=== PATIENT | male | born 1960 | race Caucasian/White ===

== ENCOUNTER 2017-10-01 06:54 | Emergency (ER) | payer MEDICAID ==
[~2017-10-01] VITALS: Ht 182.9 cm; Wt 94.3 kg
[~2017-10-01 06:54] MED LIST: ABILIFY30 MG PO; APAP/CODEINE ELI5 M1 OR; CARBAMAZEPINE100 M3 PO; CYCLOBENZAPRINE10 MG PO; CYCLOBENZAPRINE5 MG PO; DILANTIN100 MG PO; FLEXERIL PO; GLUCOPHAGE XR500 MG PO; HYDROCODON-ACE1 EAC7 PO; HYDROCODONE-AP1 EAC6 PO; HYDROCODONE-APA1 TA1 PO; IBUPROFEN 600600 M1 PO; KEFLEX500 MG PO; LANTUS100 UNIT/M SUBQ; LITHIUM CARBON300 M3 PO; NEURONTIN 300300 M1 PO; NOHOMEMEDICATIONS; NORCO 5-325 TA1 EAC1 PO; NORCO 5-325 TA1 EACH PO; OXECTA5 MG PO; ZPAK PO
[2017-10-01] MEDS ORDERED: NORCO 5-325 TA1 EACH PO (08:05)
[2017-10-01 08:15] VITALS: BP 128/80
[2017-11-28] MEDS ORDERED: PEPCID20 MG PO (14:06)
[2017-11-28] MEDS ORDERED: ZOFRAN ODT4 M1 PO (14:10)
[2017-12-24] MEDS ORDERED: ZOLOFT25 MG PO (10:20)
[2017-12-24] MEDS ORDERED: NORCO 5-325 TA1 EACH PO (12:13)
[2018-03-14] MEDS ORDERED: BACTRIM DS TAB1 EACH PO (13:03)
[2018-03-14] MEDS ORDERED: HYDROCODONE-AP1 EAC6 PO (13:03)
== END 2017-10-01 08:16 | disposition home or self-care (01) ==
LOC: M.ERS 06:54
DX: M25.552 Pain in left hip (principal); G89.29 Other chronic pain; F31.9 Bipolar disorder, unspecified; E11.9 Type 2 diabetes mellitus without complications; F41.9 Anxiety disorder, unspecified; F17.210 Nicotine dependence, cigarettes, uncomplicated; Z98.890 Other specified postprocedural states; Z79.4 Long term (current) use of insulin; Z88.0 Allergy status to penicillin; Z88.5 Allergy status to narcotic agent; Z88.6 Allergy status to analgesic agent

== ENCOUNTER 2017-10-29 12:40 | Emergency (ER) | payer MEDICAID ==
[~2017-10-29] VITALS: Ht 182.9 cm; Wt 94.3 kg
[2017-10-29] MEDS ORDERED: NAPROSYN500 M1 PO (14:23)
[2017-10-29] MEDS ORDERED: NEURONTIN 300300 M1 PO (14:23)
[2017-10-29] MEDS ORDERED: NORCO 5-325 TA1 EAC1 PO (14:23)
[2017-10-29 15:04] VITALS: BP 122/82
[2017-11-28] MEDS ORDERED: PEPCID20 MG PO (14:06)
[2017-11-28] MEDS ORDERED: ZOFRAN ODT4 M1 PO (14:10)
[2017-12-24] MEDS ORDERED: ZOLOFT25 MG PO (10:20)
[2017-12-24] MEDS ORDERED: NORCO 5-325 TA1 EACH PO (12:13)
[2018-03-14] MEDS ORDERED: BACTRIM DS TAB1 EACH PO (13:03)
[2018-03-14] MEDS ORDERED: HYDROCODONE-AP1 EAC6 PO (13:03)
== END 2017-10-29 15:06 | disposition home or self-care (01) ==
LOC: M.ERS 12:40
DX: M54.12 Radiculopathy, cervical region (principal); F31.9 Bipolar disorder, unspecified; E11.9 Type 2 diabetes mellitus without complications; G89.29 Other chronic pain; F41.9 Anxiety disorder, unspecified; F17.210 Nicotine dependence, cigarettes, uncomplicated; Z88.0 Allergy status to penicillin; Z88.6 Allergy status to analgesic agent; Z79.4 Long term (current) use of insulin

== ENCOUNTER 2017-11-05 01:33 | Emergency (ER) | payer MEDICAID ==
[~2017-11-05] VITALS: Ht 182.9 cm; Wt 94.3 kg
[~2017-11-05 01:33] MED LIST changes: +NAPROSYN500 M1 PO
[2017-11-05] MEDS ORDERED: LEVEMIR SUBQ (01:38)
[2017-11-05] MEDS ORDERED: METFORMIN HCL500 MG PO (01:38)
[2017-11-05 02:01] LABS: ABSOLUTE BASOPHILS 0.2 thou/uL (0.0-0.2); ABSOLUTE EOSINOPHILS 0.4 thou/uL (0.0-0.7); ABSOLUTE LYMPHOCYTES 3.2 thou/uL (0.8-5.3); ABSOLUTE MONOCYTES 1.2 thou/uL (0.0-1.2); ABSOLUTE NEUTROPHILS 6.5 thou/uL (1.6-8.1); BASOPHILS 1.4 %; EOSINOPHILS 3.3 %; HEMATOCRIT 48.6 % (42.0-52.0); HEMOGLOBIN 16.5 gm/dL (14.0-18.0); LYMPHOCYTES 28.4 %; MCH 32.7 pg (26.0-34.0); MCHC 33.9 g/dL (28.0-37.0); MCV 96.5 fL (80.0-100.0); MONOCYTES 10.4 %; MPV 7.4 fl. (7.2-11.1); NUCLEATED RBCS 0 /100WBC; PLATELET COUNT* 301 thou/uL (150-400); POLYS 56.5 %; RBC 5.04 mil/uL (4.50-6.00); RDW-CV 13.7 % (10.5-14.5); WBC 11.4 thou/uL (4.0-11.0)
[2017-11-05 02:06] LABS: CALCIUM 9.2 mg/dL (8.5-10.1); CREATININE 1.3 mg/dL (0.6-1.3); POTASSIUM 4.3 mmol/L (3.5-5.1)
[2017-11-05 02:11] LABS: ALBUMIN 4.1 g/dL (3.4-5.0); TOTAL BILIRUBIN 0.9 mg/dL (<0.1-1.0); TOTAL PROTEIN 8.1 g/dL (6.4-8.2)
[2017-11-05 03:38] VITALS: BP 127/75
[2017-11-28] MEDS ORDERED: PEPCID20 MG PO (14:06)
[2017-11-28] MEDS ORDERED: ZOFRAN ODT4 M1 PO (14:10)
[2017-12-24] MEDS ORDERED: ZOLOFT25 MG PO (10:20)
[2017-12-24] MEDS ORDERED: NORCO 5-325 TA1 EACH PO (12:13)
[2018-03-14] MEDS ORDERED: BACTRIM DS TAB1 EACH PO (13:03)
[2018-03-14] MEDS ORDERED: HYDROCODONE-AP1 EAC6 PO (13:03)
== END 2017-11-05 03:38 | disposition home or self-care (01) ==
LOC: M.ERS 01:33
PROVIDERS: Personal Emergency Response Attendant
DX: M25.511 Pain in right shoulder (principal); M79.1 Myalgia; F17.210 Nicotine dependence, cigarettes, uncomplicated; F31.9 Bipolar disorder, unspecified; E11.9 Type 2 diabetes mellitus without complications; F41.9 Anxiety disorder, unspecified; Z86.19 Personal history of other infectious and parasitic diseases; Z88.0 Allergy status to penicillin; Z88.5 Allergy status to narcotic agent

== ENCOUNTER 2018-01-15 13:29 | Emergency (ER) | payer MEDICAID ==
[~2018-01-15] VITALS: Ht 182.9 cm; Wt 93.9 kg
[~2018-01-15 13:29] MED LIST changes: +LEVEMIR SUBQ; +METFORMIN HCL500 MG PO; +PEPCID20 MG PO; +ZOFRAN ODT4 M1 PO; +ZOLOFT25 MG PO
[2018-01-15] MEDS ORDERED: ABILIFY10 MG PO (13:40)
[2018-01-15 14:11] LABS: ABSOLUTE BASOPHILS 0.1 thou/uL (0.0-0.2); ABSOLUTE EOSINOPHILS 0.2 thou/uL (0.0-0.7); ABSOLUTE LYMPHOCYTES 1.8 thou/uL (0.8-5.3); ABSOLUTE MONOCYTES 0.7 thou/uL (0.0-1.2); ABSOLUTE NEUTROPHILS 5.5 thou/uL (1.6-8.1); BASOPHILS 1.1 %; EOSINOPHILS 2.9 %; HEMATOCRIT 48.4 % (42.0-52.0); HEMOGLOBIN 16.7 gm/dL (14.0-18.0); LYMPHOCYTES 21.7 %; MCH 32.7 pg (26.0-34.0); MCHC 34.5 g/dL (28.0-37.0); MCV 94.8 fL (80.0-100.0); MONOCYTES 8.6 %; MPV 6.6 fl. (7.2-11.1); NUCLEATED RBCS 0 /100WBC; PLATELET COUNT* 312 thou/uL (150-400); POLYS 65.7 %; RDW-CV 13.5 % (10.5-14.5); WBC 8.4 thou/uL (4.0-11.0)
[2018-01-15 14:15] LABS: URINE BILIRUBIN NEGATIVE (Negative); URINE BLOOD 3+ (Negative); URINE COLOR YELLOW; URINE GLUCOSE-RANDOM NEGATIVE (Negative); URINE KETONES NEGATIVE (Negative); URINE LEUKOCYTES-REFLEX NEGATIVE (Negative); URINE PROTEIN NEGATIVE (Negative); URINE UROBILINOGEN 0.2 E.U./dl (0.2-1.0)
[2018-01-15 14:17] LABS: CALCIUM 9.2 mg/dL (8.5-10.1); CREATININE 1.1 mg/dL (0.6-1.3); POTASSIUM 3.9 mmol/L (3.5-5.1)
[2018-01-15 14:18] LABS: URINE CLARITY HAZY; URINE NITRITE-REFLEX POSITIVE (Negative)
[2018-01-15 14:21] LABS: ALBUMIN 4.2 g/dL (3.4-5.0); TOTAL BILIRUBIN 0.6 mg/dL (<0.1-1.0); TOTAL PROTEIN 7.8 g/dL (6.4-8.2)
[2018-01-15 14:25] LABS: SQUAMOUS 0-3 Few /LPF (0-3); URINE RBC 3-10 Few /HPF (0-2); URINE WBC-REFLEX 0-5 Rare /HPF (0-5)
[2018-01-15 14:26] LABS: BACTERIA-REFLEX None Seen /HPF (None Seen); CASTS None Seen /LPF (None Seen); CRYSTALS None Seen /LPF (None Seen)
[2018-01-15] MEDS ORDERED: BACTRIM DS TAB1 EACH PO (15:10)
[2018-01-15 15:29] VITALS: BP 103/61
[2018-03-14] MEDS ORDERED: HYDROCODONE-AP1 EAC6 PO (13:03)
[2018-03-14] MEDS ORDERED: BACTRIM DS TAB1 EACH PO (13:03)
== END 2018-01-15 15:30 | disposition home or self-care (01) ==
LOC: M.ERS 13:29
PROVIDERS: Nurse Practitioner Family
DX: N39.0 Urinary tract infection, site not specified (principal); K59.00 Constipation, unspecified; F17.210 Nicotine dependence, cigarettes, uncomplicated; E11.9 Type 2 diabetes mellitus without complications; F31.9 Bipolar disorder, unspecified; G89.29 Other chronic pain; M54.9 Dorsalgia, unspecified; Z88.0 Allergy status to penicillin; Z88.8 Allergy status to other drugs, medicaments and biological substances

== ENCOUNTER 2018-01-30 18:31 | Emergency (ER) | payer MEDICAID ==
[~2018-01-30] VITALS: Ht 182.9 cm; Wt 93.9 kg
[~2018-01-30 18:31] MED LIST changes: +ABILIFY10 MG PO; +BACTRIM DS TAB1 EACH PO
[2018-01-30 18:37] VITALS: BP 154/79
[2018-01-30] MEDS ORDERED: COLACE 100 MG100 MG PO (18:46)
[2018-01-30] MEDS ORDERED: HYDROCODON-ACE1 EAC7 PO (18:46)
--- NOTE | 2018-01-31 11:07 | EKG ---
[place] [address] ELECTROCARDIOGRAM REPORT Name: JAZZY STOCKTON BISHOP Room: [facility]#: [id number] Admission: 01/30/18 Attend Phys: Discharge: 01/30/18 Date of : 58 Report #: [id number] THIS REPORT FOR: //name// [facility] ED Test Date: 2018-01-30 Test Time: 18:37:15 Pat Name: JAZZY STOCKTON Department: Room: Gender: M Pin Game Machine Inspector: Kentrell ORTEGA : 1960 Requested By: Evans Avery Order Number: [id number] MD: Josh York Measurements Intervals [place] Rate: 80 P: 45 AL: 167 QRS: -6 QRSD: 132 T: 52 QT: 385 QTc: 445 Interpretive Statements Sinus rhythm low voltage Nonspecific intraventricular conduction delay Baseline wander in lead(s) V2 Compared to ECG 02/08/2014 11:25:49 no change Electronically Signed On 01-31-2018 11:07:25 CDT by Josh York [email or web address] <ELECTRONICALLY SIGNED> By: Josh York MD, [facility] 01/31/18 1107 183 36 Josh York MD, [facility] /EPI
[2018-03-14] MEDS ORDERED: BACTRIM DS TAB1 EACH PO (13:03)
[2018-03-14] MEDS ORDERED: HYDROCODONE-AP1 EAC6 PO (13:03)
== END 2018-01-30 18:59 | disposition home or self-care (01) ==
LOC: M.ERS 18:31
DX: K43.9 Ventral hernia without obstruction or gangrene (principal); F31.9 Bipolar disorder, unspecified; E11.9 Type 2 diabetes mellitus without complications; G89.29 Other chronic pain; M54.9 Dorsalgia, unspecified; F17.210 Nicotine dependence, cigarettes, uncomplicated; Z86.19 Personal history of other infectious and parasitic diseases; Z88.8 Allergy status to other drugs, medicaments and biological substances; Z88.0 Allergy status to penicillin; Z79.4 Long term (current) use of insulin

== ENCOUNTER 2018-03-08 21:18 | Emergency (ER) | payer MEDICAID ==
[~2018-03-08] VITALS: Ht 182.9 cm; Wt 93.9 kg
[~2018-03-08 21:18] MED LIST changes: +COLACE 100 MG100 MG PO
[2018-03-08 21:28] VITALS: BP 122/83
[2018-03-14] MEDS ORDERED: BACTRIM DS TAB1 EACH PO (13:03)
[2018-03-14] MEDS ORDERED: HYDROCODONE-AP1 EAC6 PO (13:03)
== END 2018-03-08 21:45 | disposition home or self-care (01) ==
LOC: M.ERS 21:18
DX: K43.9 Ventral hernia without obstruction or gangrene (principal); F31.9 Bipolar disorder, unspecified; E11.9 Type 2 diabetes mellitus without complications; G89.29 Other chronic pain; M54.9 Dorsalgia, unspecified; F41.9 Anxiety disorder, unspecified; F17.210 Nicotine dependence, cigarettes, uncomplicated; Z86.711 Personal history of pulmonary embolism; Z88.0 Allergy status to penicillin; Z88.6 Allergy status to analgesic agent; Z79.4 Long term (current) use of insulin

== ENCOUNTER 2018-09-24 11:42 | Inpatient (IN) | payer MEDICAID ==
[~2018-09-24] VITALS: Ht 182.9 cm; Wt 93.9 kg
--- NOTE | ~2018-09-24 | PROC ---
[address] [address] PROCEDURE REPORT Name: JAZZY STOCKTON Room: [address] ADM IN M.R.#: [id number] Admission: 09/24/18 Attend Phys: Isaac Avila MD Discharge: Date of : 58 Report #: [id number] THIS REPORT FOR: //name// For GI report, please see the Provation report in Perceptive 7. By: 1225Medical Records Staff EAMON /JOSÉ LUIS
[2018-09-24 11:47] VITALS: BP 120/61
[2018-09-24 12:19] LABS: ABSOLUTE BASOPHILS 0.1 thou/uL (0.0-0.2); ABSOLUTE EOSINOPHILS 0.2 thou/uL (0.0-0.7); ABSOLUTE MONOCYTES 0.6 thou/uL (0.0-1.2); ABSOLUTE NEUTROPHILS 3.9 thou/uL (1.6-8.1); BASOPHILS 1.2 %; HEMATOCRIT 43.6 % (42.0-52.0); HEMOGLOBIN 15.1 gm/dL (14.0-18.0); LYMPHOCYTES 29.7 %; MCH 32.7 pg (26.0-34.0); MCHC 34.7 g/dL (28.0-37.0); MCV 94.5 fL (80.0-100.0); MONOCYTES 9.2 %; NUCLEATED RBCS 0 /100WBC; PLATELET COUNT* 322 thou/uL (150-400); POLYS 56.9 %; RBC 4.62 mil/uL (4.50-6.00); RDW-CV 13.5 % (10.5-14.5); WBC 6.8 thou/uL (4.0-11.0)
[2018-09-24 12:26] LABS: ANION GAP 8 mmol/L (7-16); BUN 18 mg/dL (7-18); CALCIUM 8.7 mg/dL (8.5-10.1); CHLORIDE 101 mmol/L (98-107); CO2 26 mmol/L (21-32); CREATININE 1.1 mg/dL (0.6-1.3); GLUCOSE 194 mg/dL (70-99); SODIUM 135 mmol/L (136-145)
[2018-09-24 12:33] LABS: ALBUMIN 3.5 g/dL (3.4-5.0); ALKALINE PHOSPHATASE 105 U/L (46-116); LIPASE 264 U/L (73-393); SGOT 19 U/L (15-37); SGPT 28 U/L (30-65); TOTAL BILIRUBIN 0.5 mg/dL (<0.1-1.0); TOTAL PROTEIN 7.2 g/dL (6.4-8.2); TROPONIN-I LEVEL <0.06 ng/mL (<0.06)
[2018-09-24 17:05] VITALS: BP 99/58
[2018-09-24 18:02] VITALS: BP 118/37
--- NOTE | 2018-09-24 18:06 | NUR ---
PATIENT ARRIVED TO UNIT AT 1715. ALERT AND ORIENTED X4. UP AD GINA IN ROOM. IV IS PATENT AND INFUSING. PAIN BEING MANAGED WITH MEDICATION GIVEN IN THE ER. NAUSEA BEING MANAGED WITH MEDICATION GIVEN IN THE ER. TOLERATING CLEAR LIQUID DIET AT THIS TIME. PATIENT HAS BEEN ORIENTED TO ROOM. SIEZURE PRECAUTIONS IN PLACE. VSS ON ROOM AIR. HOURLY ROUNDS HAVE BEEN MAINTAINED THROUGHOUT SHIFT. CALL LIGHT IS WITHIN REACH. NURSING WILL CONTINUE TO MONITOR.
[2018-09-24 20:00] VITALS: BP 120/57
--- NOTE | 2018-09-25 05:00 | NUR ---
PATIENT HAS REMAINED ALERT AND ORIENTED X 4 THROUOGHOUT THE SHIFT AND RESTING QUIETLY ON HOURLY ROUNDS. MEDICATED FOR ABDOMINAL PAIN X 2 THIS SHIFT TO GOOD EFFECT. OBTAINED NEW ORDER FOR TUMS FOR HEARTBURN. THIS WAS PROVIDED TO GOOD EFFECT. NO STOOLS THIS SHIFT. IVF'S AND ANTIBIOTICS PER ORDER. VITAL SIGNS STABLE. CONTINUE TO MONITOR.
[2018-09-25 08:38] VITALS: BP 95/53
[2018-09-25 15:54] VITALS: BP 104/58
--- NOTE | 2018-09-25 16:35 | NUR ---
PT REMAINED ALERT AND ORIENTED THIS SHIFT. PT C/O PAIN, FENTANYL GIVEN ORDERED. PT HAS EGD AND COLONOSCOPY ORDERED FOR TOMORROW, NPO AFTER MIDNIGHT. BOWEL PREP STARTED AT 1630. FALL RISK PRECAUTIONS IN PLACE. HOURLY ROUNDING COMPLETED. WILL CONTINUE TO MONITOR.
[2018-09-26] VITALS: BP 130/67
--- NOTE | 2018-09-26 07:42 | NUR ---
PATIENT SLEPT MOST OF THE NIGHT. IV FLUIDS CONTINUE TO INFUSE ORDERED. PATIENT WAS GIVEN PAIN MEDICINE ABOUT EVERY 4 HOURS. PATIENT FINISHED DRINKING BOWEL PREP. PATIENT IS TO HAVE AN EGD AND COLOOSCOPY LATER TODAY. WILL CONTINUE TO MONITOR.
[2018-09-26 07:45] VITALS: BP 117/69
[2018-09-26 09:46] VITALS: BP 117/69
--- NOTE | 2018-09-26 11:14 | EKG ---
[place] [address] ELECTROCARDIOGRAM REPORT Name: JAZZY STOCKTON BISHOP Room: [address] ADM IN M.R.#: [id number] Admission: 09/24/18 Attend Phys: Isaac Avila MD Discharge: Date of : 58 Report #: [id number] THIS REPORT FOR: //name// [facility] ED Test Date: 2018-09-24 Test Time: 12:14:24 Pat Name: JAZZY STOCKTON Department: Room: [facility] Gender: Outside Upholsterer: Kentrell BLANTON : 1960 Requested By: Gilles Flor Order Number: [id number] MD: Josh York Measurements Intervals [place] Rate: 65 P: 52 IN: 166 QRS: 7 QRSD: 111 T: 35 QT: 409 QTc: 426 Interpretive Statements Sinus rhythm Low voltage, extremity and precordial leads Compared to ECG 01/30/2018 18:37:15 no change Electronically Signed On 09-26-2018 11:14:06 DIGESTER HAND by Josh York [email or web address] <ELECTRONICALLY SIGNED> By: Josh York MD, [facility] 09/26/18 1114 1214 1214 Josh York MD, [facility] /EPI
[2018-09-26 17:02] VITALS: BP 90/48
--- NOTE | 2018-09-26 18:03 | NUR ---
PATIENT A&OX4, ROOM AIR, IV LEFT FOREARM FLUIDS INFUSSING. UP AD GINA, STEADY GAIT. C/O PIAN, RELIEF WITH MEDICATION. EGD AND COLONOSCOPY TODAY, BX TAKEN. ABD ULTRASOUND AND CT SCHEDULED FOR TOMORROW. NO OTHER CONCERNS AT THIS TIME. APPROPRAITE AND COOPORATIVE WITH CARE.
[2018-09-26 20:49] VITALS: BP 87/47
[2018-09-26 22:10] VITALS: BP 105/57
[2018-09-26 23:08] LABS: HEPATITIS B SURFACE AG Negative (Negative)
[2018-09-27 05:21] LABS: HEMATOCRIT 37.5 % (42.0-52.0); HEMOGLOBIN 12.8 gm/dL (14.0-18.0); MCH 32.3 pg (26.0-34.0); MCHC 34.1 g/dL (28.0-37.0); MCV 94.8 fL (80.0-100.0); MPV 7.1 fl. (7.2-11.1); RBC 3.96 mil/uL (4.50-6.00); RDW-CV 13.8 % (10.5-14.5); WBC 6.2 thou/uL (4.0-11.0)
[2018-09-27 05:54] LABS: ALBUMIN 2.7 g/dL (3.4-5.0); CALCIUM 7.7 mg/dL (8.5-10.1); CREATININE 0.9 mg/dL (0.6-1.3); MAGNESIUM 1.8 mg/dL (1.8-2.4); POTASSIUM 3.5 mmol/L (3.5-5.1); TOTAL BILIRUBIN 0.6 mg/dL (<0.1-1.0); TOTAL PROTEIN 5.6 g/dL (6.4-8.2)
--- NOTE | 2018-09-27 05:57 | NUR ---
PATIENT SLEPT MOST OF THE NIGHT. IV FLUIDS CONTINUE TO INFUSE. PATIENT WAS GIVEN PAIN MEDICINE ONCE THIS SHIFT. PATIENT IS NPO FOR ABDOMINAL US AND CT OF ABDOMEN AND PELVIS. WILL CONTINUE TO MONITOR.
[2018-09-27 07:55] VITALS: BP 100/50
[2018-09-27 16:33] VITALS: BP 104/57
[2018-09-27 16:35] LABS: URINE BILIRUBIN NEGATIVE (Negative); URINE BLOOD TRACE (Negative); URINE CLARITY CLEAR; URINE COLOR YELLOW; URINE GLUCOSE-RANDOM TRACE (Negative); URINE KETONES NEGATIVE (Negative); URINE LEUKOCYTES-REFLEX NEGATIVE (Negative); URINE NITRITE-REFLEX NEGATIVE (Negative); URINE PROTEIN NEGATIVE (Negative); URINE SPECIFIC GRAVITY <= 1.005 (1.005-1.030); URINE UROBILINOGEN 0.2 E.U./dl (0.2-1.0)
--- NOTE | 2018-09-27 16:48 | NUR ---
PATIENT A&OX4, ROOM AIR, IV LEFT FOREARM FLUIDS INFUSSING. UP AD GINA, STEADY GAIT. ABD ULTRASOUND AND CT TODAY. HOLDING METFORMIN FOR 48 HOURS. C/O PAIN, RELIEF WITH MEDICATION. NO OTHER CONCERNS AT THIS TIME. APPROPRIATE AND COOPORATIVE WITH CARE. WILL CONTINUE TO MONITOR.
[2018-09-27 19:30] VITALS: BP 98/58
[2018-09-28 04:40] LABS: HEMATOCRIT 39.1 % (42.0-52.0); HEMOGLOBIN 13.3 gm/dL (14.0-18.0); MCH 32.2 pg (26.0-34.0); MCHC 34.1 g/dL (28.0-37.0); MCV 94.4 fL (80.0-100.0); MPV 7.2 fl. (7.2-11.1); RBC 4.14 mil/uL (4.50-6.00); RDW-CV 13.7 % (10.5-14.5); WBC 5.5 thou/uL (4.0-11.0)
[2018-09-28 04:51] LABS: ALBUMIN 2.9 g/dL (3.4-5.0); CALCIUM 7.8 mg/dL (8.5-10.1); MAGNESIUM 1.8 mg/dL (1.8-2.4); POTASSIUM 3.5 mmol/L (3.5-5.1); TOTAL BILIRUBIN 0.7 mg/dL (<0.1-1.0); TOTAL PROTEIN 6.1 g/dL (6.4-8.2)
--- NOTE | 2018-09-28 06:07 | NUR ---
PT NPO AFTER MIDNIGHT FOR PIPIDA SCAN TODAY. NO COMPLAINTS OF PAIN OR DISCOMFORT DURING SHIFT. HEART RATE AND BLOOD PRESSURE WITHIN DEFINED LIMITS. PT AFEBRILE. O2 SAT > 95% ON ROOM AIR. NO ACUTE CHANGES DURING SHIFT, WILL CONTINUE TO MOITOR.
[2018-09-28 08:40] VITALS: BP 105/53
--- NOTE | 2018-09-28 13:06 | PATH ---
[address] [address] PATHOLOGY RPT PROCEDURE Name: JAZZY ABURTO Room: [address] IN .R.#: [id number] Admission: 09/24/18 Date of : 58 Discharge: Report #: [id number] Path Case #: [id number] LCA Accession Number: [id number] . 01 Material submitted: . PART A: ANTRAL BIOPSY FOR H-PYLORI AND EROSIVE GASTRITIS/DUODENITIS PART B: SMALL BOWEL BIOPSY PART C: TWO POLYPS PROXIMAL TRANSVERSE COLON PART D: DISTAL TRANSVERSE COLON POLYP . 01 Clinical history: . None provided . 02 Diagnosis: A. Stomach, antrum, biopsy: - Mild chronic inflammation, nonspecific. - No evidence of intestinal metaplasia or dysplasia. - No evidence of Helicobacter pylori on immunoperoxidase stain. . B. Small bowel, biopsy: - Mild chronic inflammation, nonspecific. - Negative for granulomata. - Normal villous architecture. . C. "Two polyps proximal transverse colon", biopsy: - Adenomatous colonic mucosa, six fragments. - Hyperplastic colonic mucosa, one fragment. . D. Colon, distal transverse, biopsy: - Adenomatous polyp. (SKM:ruby; 09/27/2018) QMS/09/27/2018 . 02 Electronically signed: . Chidi Gallagher MD, Pathologist NPI- [id number] . 01 Gross description: . A. Received in formalin labeled "Jazzy Aburto, antral biopsy for H. pylori and erosive gastritis/duodenitis," is a single segment of churchill soft tissue measuring 1.0 cm in maximum dimension. The specimen is entirely submitted in cassette A1. . B. Received in formalin labeled "Jazzy Aburto, small bowel biopsy," are 4 segments of churchill soft tissue measuring 1.2 x 0.7 x 0.2 cm in aggregate dimensions and ranging from 0.3 to 0.5 cm in maximum dimension. The specimen is submitted entirely in cassette [place] [address] PATHOLOGY RPT PROCEDURE Name: JAZZY ABURTO Room: [address] IN ..#: [id number] Admission: 09/24/18 Date of : 58 Discharge: Report #: [id number] Path Case #: [id number] C. Received in formalin labeled "Jazzy Aburto, 2 polyps proximal transverse colon," are multiple segments of churchill soft tissue measuring 1.5 x 0.6 x 0.1 cm in aggregate dimensions. The specimen is filtered and entirely submitted in cassette C1. . D. Received in formalin labeled "Jazzy Aburto, distal transverse colon polyp," is a 0.9 x 0.7 x 0.7 cm polypoid piece of churchill soft tissue. The margin is inked and the specimen is sectioned perpendicular to the margin and entirely submitted in cassette D1 and D2. (TSD; 09/26/2018) TOB/TOB . 02 Pathologist provided ICD-10: K29.50, K52.9, D12.3 . 02 CPT . 823294, 762301, 699187, 468729, Q05327 Specimen Comment: A courtesy copy of this report has been sent to Specimen Comment: [phone], . Specimen Comment: Report sent to and Performed at: 01 [facility] [address] [place] [address] [address], [place], [place] [id number] MD Semaj Desouza MD Phone: [phone] Performed at: 02 [facility] [address] [address] [place], [place] [id number] MD Yoshi Adams MD Phone: [phone]
[2018-09-28 15:36] VITALS: BP 105/53
[2018-09-28] MEDS ORDERED: NORCO 5-325 TA1 EACH PO (15:52)
[2018-09-28] MEDS ORDERED: TUMS PO (15:54)
[2018-09-28] MEDS ORDERED: PROTONIX40 M1 PO (16:27)
--- NOTE | 2018-09-28 16:43 | NUR ---
PATIENT'S IV REMOVED. ORDERS RECEIVED FOR DISCHARGE. PATIENT'S PRESCRIPTION OF PROTONIX CALLED INTO PHARMACY. PATIENT VERBALIZED UNDERSTANDING IN REGARDS TO NEW MEDICATIONS AND FOLLOW UP APPOINTMENTS. PATIENT AMBULATED OFF NURSING UNIT WITH NURSING STAFF. DISCHARGED WITH ALL BELONGINGS.
--- NOTE | 2018-10-01 11:07 | PATH ---
[address] [address] PATHOLOGY RPT PROCEDURE Name: JAZZY STOCKTON Room: [address]#: [id number] Admission: 09/24/18 Date of : 58 Discharge: 09/28/18 Report #: [id number] Path Case #: [id number] Note LCA Accession Number: [id number] TESTS RESULT FLAG UNITS REF RANGE LAB Clinician Provided Cytology Information No. of containers..01 Other (Miscellaneous) Source: URINE DIAGNOSIS: 02 URINE NEGATIVE FOR HIGH-GRADE UROTHELIAL CARCINOMA (NHGUC). BENIGN UROTHELIAL CELLS ARE PRESENT. REACTIVE SQUAMOUS CELLS ARE PRESENT. Signed out by: 02 Yariel Coffey MD, Pathologist NPI- [id number] Performed by: 01 Moises Gamez, Ceramics Machine Operator ([facility]) Gross description: 01 80 ML, YELLOW, CLEAR /LCS FLAG LEGEND: L-Low Normal,H-High Normal,LL-Alert Low,HH-Alert High <-Panic Low,>-Panic High,A-Abnormal,AA-Critical Abnormal Performed at: [address] [place] [address] Semaj Desouza MD, [address] [place] [address] [address] [place] [address] Yoshi Adams MD, Specimen Comment: A courtesy copy of this report has been sent to Specimen Comment: [phone]. Specimen Comment: Report sent to Performed at: [address], [place], [place] [id number] MD Semaj Desouza MD Phone: [phone]
== END 2018-09-28 16:45 | disposition home or self-care (01) | DRG 392 ==
LOC: M.ERS 11:42 → M.3W 15:01 → M.TBA-ER 15:01 → M.3W 17:13
PROVIDERS: Family Medicine; Internal Medicine Gastroenterology
PROC: 0DBL8ZZ Excision of Transverse Colon, Via Natural or Artificial Opening Endoscopic (ICD-10-PCS; principal; 2018-09-26)
PROC: 0DB68ZX Excision of Stomach, Via Natural or Artificial Opening Endoscopic, Diagnostic (ICD-10-PCS; 2018-09-26)
PROC: 0DB98ZX Excision of Duodenum, Via Natural or Artificial Opening Endoscopic, Diagnostic (ICD-10-PCS; 2018-09-26)
DX: K52.9 Noninfective gastroenteritis and colitis, unspecified (principal); E44.0 Moderate protein-calorie malnutrition; K29.00 Acute gastritis without bleeding; K57.30 Diverticulosis of large intestine without perforation or abscess without bleeding; F31.9 Bipolar disorder, unspecified; G89.29 Other chronic pain; F41.9 Anxiety disorder, unspecified; F12.90 Cannabis use, unspecified, uncomplicated; E11.65 Type 2 diabetes mellitus with hyperglycemia; K21.9 Gastro-esophageal reflux disease without esophagitis; M54.5 Low back pain; B19.20 Unspecified viral hepatitis C without hepatic coma; K44.9 Diaphragmatic hernia without obstruction or gangrene; K29.80 Duodenitis without bleeding; K64.9 Unspecified hemorrhoids; Z96.659 Presence of unspecified artificial knee joint; N40.1 Benign prostatic hyperplasia with lower urinary tract symptoms; Z86.711 Personal history of pulmonary embolism; Z87.81 Personal history of (healed) traumatic fracture; Z88.0 Allergy status to penicillin; Z88.8 Allergy status to other drugs, medicaments and biological substances; Z68.28 Body mass index [BMI] 28.0-28.9, adult; Z87.442 Personal history of urinary calculi; Z87.891 Personal history of nicotine dependence; Z83.3 Family history of diabetes mellitus; Z80.42 Family history of malignant neoplasm of prostate

== ENCOUNTER 2019-03-02 10:26 | Emergency (ER) | payer MEDICAID ==
[~2019-03-02] VITALS: Ht 182.9 cm; Wt 77.1 kg
[~2019-03-02 10:26] MED LIST changes: +PROTONIX40 M1 PO; +TUMS PO
[2019-03-02 10:34] VITALS: BP 121/47
[2019-03-02] MEDS ORDERED: ZOLOFT25 MG PO (10:36)
[2019-03-02] MEDS ORDERED: KEFLEX500 M1 PO (11:10)
[2019-03-02] MEDS ORDERED: NORCO 5-325 TA1 EACH PO (11:10)
[2019-03-02] MEDS ORDERED: BACTRIM DS TAB1 EACH PO (11:10)
== END 2019-03-02 11:15 | disposition home or self-care (01) ==
LOC: M.ERS 10:26
DX: S93.692A Other sprain of left foot, initial encounter (principal); L03.116 Cellulitis of left lower limb; F31.9 Bipolar disorder, unspecified; E11.9 Type 2 diabetes mellitus without complications; G89.29 Other chronic pain; M54.9 Dorsalgia, unspecified; F41.9 Anxiety disorder, unspecified; F17.210 Nicotine dependence, cigarettes, uncomplicated; Z88.0 Allergy status to penicillin; Z86.19 Personal history of other infectious and parasitic diseases; Z88.6 Allergy status to analgesic agent; X58.XXXA Exposure to other specified factors, initial encounter; Y93.89 Activity, other specified; Y92.89 Other specified places as the place of occurrence of the external cause; Y99.8 Other external cause status

== ENCOUNTER 2019-03-27 12:41 | Emergency (ER) | payer MEDICAID ==
[~2019-03-27] VITALS: Ht 182.9 cm; Wt 93.9 kg
[~2019-03-27 12:41] MED LIST changes: +KEFLEX500 M1 PO
[2019-03-27 13:32] LABS: ABSOLUTE BASOPHILS 0.1 thou/uL (0.0-0.2); ABSOLUTE EOSINOPHILS 0.3 thou/uL (0.0-0.7); ABSOLUTE LYMPHOCYTES 1.8 thou/uL (0.8-5.3); ABSOLUTE MONOCYTES 0.7 thou/uL (0.0-1.2); ABSOLUTE NEUTROPHILS 3.5 thou/uL (1.6-8.1); BASOPHILS 1.4 %; EOSINOPHILS 4.4 %; HEMATOCRIT 41.7 % (42.0-52.0); HEMOGLOBIN 14.5 gm/dL (14.0-18.0); MCH 32.5 pg (26.0-34.0); MCHC 34.6 g/dL (28.0-37.0); MCV 93.8 fL (80.0-100.0); MONOCYTES 11.2 %; MPV 7.1 fl. (7.2-11.1); NUCLEATED RBCS 0 /100WBC; PLATELET COUNT* 278 thou/uL (150-400); RBC 4.45 mil/uL (4.50-6.00); RDW-CV 13.8 % (10.5-14.5); WBC 6.3 thou/uL (4.0-11.0)
[2019-03-27 13:38] LABS: CALCIUM 8.1 mg/dL (8.5-10.1); CREATININE 1.1 mg/dL (0.6-1.3); POTASSIUM 4.2 mmol/L (3.5-5.1)
[2019-03-27 13:43] LABS: ALBUMIN 3.6 g/dL (3.4-5.0); TOTAL BILIRUBIN 0.6 mg/dL (<0.1-1.0); TOTAL PROTEIN 7.1 g/dL (6.4-8.2)
[2019-03-27 14:29] LABS: URINE BILIRUBIN NEGATIVE (Negative); URINE BLOOD 3+ (Negative); URINE CLARITY CLEAR; URINE COLOR YELLOW; URINE GLUCOSE-RANDOM 1+ (Negative); URINE KETONES NEGATIVE (Negative); URINE LEUKOCYTES-REFLEX NEGATIVE (Negative); URINE NITRITE-REFLEX NEGATIVE (Negative); URINE PROTEIN TRACE (Negative); URINE SPECIFIC GRAVITY 1.025 (1.005-1.030); URINE UROBILINOGEN 0.2 E.U./dl (0.2-1.0)
[2019-03-27 14:37] LABS: SQUAMOUS 4-10 Moderate /LPF (0-3); URINE WBC-REFLEX 0-5 Rare /HPF (0-5)
[2019-03-27 14:38] LABS: BACTERIA-REFLEX None Seen /HPF (None Seen); CASTS None Seen /LPF (None Seen); CRYSTALS None Seen /LPF (None Seen)
[2019-03-27] MEDS ORDERED: CITRATE OF MAG296 ML PO (15:19)
[2019-03-27] MEDS ORDERED: IBUPROFEN 800800 M1 PO (15:22)
[2019-03-27] MEDS ORDERED: ACETAMINOPHEN-1 EAC1 PO (15:22)
[2019-03-27 15:37] VITALS: BP 109/73
== END 2019-03-27 15:40 | disposition home or self-care (01) ==
LOC: M.ERS 12:41
PROVIDERS: Nurse Practitioner Family
DX: K59.00 Constipation, unspecified (principal); R91.8 Other nonspecific abnormal finding of lung field; K56.699 Other intestinal obstruction unspecified as to partial versus complete obstruction; F31.9 Bipolar disorder, unspecified; M54.9 Dorsalgia, unspecified; G89.29 Other chronic pain; F41.9 Anxiety disorder, unspecified; I10 Essential (primary) hypertension; F17.210 Nicotine dependence, cigarettes, uncomplicated; Z88.0 Allergy status to penicillin; Z88.8 Allergy status to other drugs, medicaments and biological substances

== ENCOUNTER 2019-04-15 14:26 | Emergency (ER) | payer MEDICAID ==
[~2019-04-15] VITALS: Ht 182.9 cm; Wt 93.9 kg
[~2019-04-15 14:26] MED LIST changes: +ACETAMINOPHEN-1 EAC1 PO; +CITRATE OF MAG296 ML PO; +IBUPROFEN 800800 M1 PO
[2019-04-15 15:00] LABS: ABSOLUTE BASOPHILS 0.1 thou/uL (0.0-0.2); ABSOLUTE EOSINOPHILS 0.3 thou/uL (0.0-0.7); ABSOLUTE MONOCYTES 0.6 thou/uL (0.0-1.2); ABSOLUTE NEUTROPHILS 3.7 thou/uL (1.6-8.1); BASOPHILS 1.1 %; EOSINOPHILS 4.3 %; HEMATOCRIT 41.3 % (42.0-52.0); HEMOGLOBIN 14.4 gm/dL (14.0-18.0); MCH 32.8 pg (26.0-34.0); MCHC 34.9 g/dL (28.0-37.0); MCV 93.9 fL (80.0-100.0); MONOCYTES 9.6 %; MPV 6.7 fl. (7.2-11.1); NUCLEATED RBCS 0 /100WBC; PLATELET COUNT* 279 thou/uL (150-400); RDW-CV 14.2 % (10.5-14.5); WBC 6.7 thou/uL (4.0-11.0)
[2019-04-15 15:02] LABS: URINE BILIRUBIN NEGATIVE (Negative); URINE BLOOD 3+ (Negative); URINE CLARITY CLEAR; URINE COLOR YELLOW; URINE GLUCOSE-RANDOM 2+ (Negative); URINE KETONES TRACE (Negative); URINE LEUKOCYTES-REFLEX NEGATIVE (Negative); URINE NITRITE-REFLEX NEGATIVE (Negative); URINE PROTEIN TRACE (Negative); URINE UROBILINOGEN 0.2 E.U./dl (0.2-1.0)
[2019-04-15 15:10] LABS: CREATININE 1.4 mg/dL (0.6-1.3)
[2019-04-15 15:15] LABS: ALBUMIN 3.8 g/dL (3.4-5.0); TOTAL BILIRUBIN 0.7 mg/dL (<0.1-1.0); TOTAL PROTEIN 7.4 g/dL (6.4-8.2)
[2019-04-15 15:25] LABS: SQUAMOUS >10 Many /LPF (0-3); URINE RBC >20 Many /HPF (0-2)
[2019-04-15 15:27] LABS: URINE WBC-REFLEX 0-5 Rare /HPF (0-5)
[2019-04-15 15:28] LABS: BACTERIA-REFLEX 1-9 Few /HPF (None Seen); CASTS None Seen /LPF (None Seen); CRYSTALS None Seen /LPF (None Seen); MUCUS None Seen strn/LPF (None Seen)
[2019-04-15] MEDS ORDERED: LEVAQUIN 500 M500 M3 PO (16:29)
[2019-04-15 16:41] VITALS: BP 119/71
== END 2019-04-15 16:47 | disposition home or self-care (01) ==
LOC: M.ERS 14:26
PROVIDERS: Nurse Practitioner Family
DX: N41.8 Other inflammatory diseases of prostate (principal); R11.2 Nausea with vomiting, unspecified; I10 Essential (primary) hypertension; E11.9 Type 2 diabetes mellitus without complications; G89.29 Other chronic pain; M54.9 Dorsalgia, unspecified; F31.9 Bipolar disorder, unspecified; F41.9 Anxiety disorder, unspecified; F17.210 Nicotine dependence, cigarettes, uncomplicated; Z79.4 Long term (current) use of insulin; Z88.6 Allergy status to analgesic agent; Z86.711 Personal history of pulmonary embolism; Z87.442 Personal history of urinary calculi; Z86.69 Personal history of other diseases of the nervous system and sense organs; Z88.0 Allergy status to penicillin; Z98.890 Other specified postprocedural states

== ENCOUNTER 2019-06-24 01:44 | Emergency (ER) | payer MEDICAID ==
[~2019-06-24] VITALS: Ht 182.9 cm; Wt 93.9 kg
[~2019-06-24 01:44] MED LIST changes: +LEVAQUIN 500 M500 M3 PO
[2019-06-24 02:14] LABS: URINE BILIRUBIN NEGATIVE (Negative); URINE BLOOD 3+ (Negative); URINE CLARITY CLEAR; URINE COLOR YELLOW; URINE GLUCOSE-RANDOM 3+ (Negative); URINE KETONES NEGATIVE (Negative); URINE LEUKOCYTES-REFLEX NEGATIVE (Negative); URINE NITRITE-REFLEX NEGATIVE (Negative); URINE PROTEIN NEGATIVE (Negative); URINE SPECIFIC GRAVITY 1.015 (1.005-1.030); URINE UROBILINOGEN 0.2 E.U./dl (0.2-1.0)
[2019-06-24 02:21] LABS: FINE GRANULAR CASTS 0-3 Few /LPF (None Seen); HYALINE CASTS 0-3 Few /LPF (None Seen); MUCUS 4-6 Moderate strn/LPF (None Seen); SQUAMOUS 0-3 Few /LPF (0-3); URINE RBC >20 Many /HPF (0-2); URINE WBC-REFLEX 6-15 Few /HPF (0-5)
[2019-06-24 02:22] LABS: CRYSTALS None Seen /LPF (None Seen)
[2019-06-24] MEDS ORDERED: HYDROCODON-ACE1 EAC8 PO (03:30)
[2019-06-24] MEDS ORDERED: CIPROFLOXACIN500 M1 PO (03:30)
[2019-06-24 03:42] VITALS: BP 133/76
== END 2019-06-24 03:40 | disposition home or self-care (01) ==
LOC: M.ERS 01:44
PROVIDERS: Emergency Medicine
DX: N39.0 Urinary tract infection, site not specified (principal); F17.210 Nicotine dependence, cigarettes, uncomplicated; E11.9 Type 2 diabetes mellitus without complications; M54.9 Dorsalgia, unspecified; G89.29 Other chronic pain; F41.9 Anxiety disorder, unspecified; F31.9 Bipolar disorder, unspecified; I10 Essential (primary) hypertension; Z88.8 Allergy status to other drugs, medicaments and biological substances; Z88.0 Allergy status to penicillin; Z88.6 Allergy status to analgesic agent; Z79.4 Long term (current) use of insulin; Z87.442 Personal history of urinary calculi

== ENCOUNTER 2019-07-26 08:17 | Emergency (ER) | payer MEDICAID ==
[~2019-07-26] VITALS: Ht 175.3 cm; Wt 96.2 kg
[~2019-07-26 08:17] MED LIST changes: +CIPROFLOXACIN500 M1 PO; +HYDROCODON-ACE1 EAC8 PO
[2019-07-26] MEDS ORDERED: NOVOLOG100 UNIT/1 SUBQ (08:39)
[2019-07-26 09:38] LABS: ABSOLUTE BASOPHILS 0.1 thou/uL (0.0-0.2); ABSOLUTE EOSINOPHILS 0.2 thou/uL (0.0-0.7); ABSOLUTE LYMPHOCYTES 1.9 thou/uL (0.8-5.3); ABSOLUTE MONOCYTES 0.7 thou/uL (0.0-1.2); ABSOLUTE NEUTROPHILS 5.2 thou/uL (1.6-8.1); EOSINOPHILS 2.5 %; HEMATOCRIT 41.9 % (42.0-52.0); HEMOGLOBIN 14.7 gm/dL (14.0-18.0); LYMPHOCYTES 23.3 %; MCH 33.5 pg (26.0-34.0); MCV 95.6 fL (80.0-100.0); MPV 7.3 fl. (7.2-11.1); NUCLEATED RBCS 0 /100WBC; PLATELET COUNT* 256 thou/uL (150-400); POLYS 64.2 %; RBC 4.38 mil/uL (4.50-6.00); RDW-CV 13.3 % (10.5-14.5)
[2019-07-26 09:49] LABS: CALCIUM 9.8 mg/dL (8.5-10.1); CREATININE 1.2 mg/dL (0.6-1.3); POTASSIUM 4.6 mmol/L (3.5-5.1)
[2019-07-26 09:51] LABS: APTT 23.9 Seconds (25.0-31.3); INR 0.9; PROTIME 9.4 Seconds (9.20-11.50)
[2019-07-26 09:53] LABS: ALBUMIN 3.9 g/dL (3.4-5.0); TOTAL BILIRUBIN 0.6 mg/dL (<0.1-1.0); TOTAL PROTEIN 7.6 g/dL (6.4-8.2)
[2019-07-26 10:12] LABS: URINE BILIRUBIN NEGATIVE (Negative); URINE BLOOD 3+ (Negative); URINE CLARITY SL CLOUDY; URINE COLOR YELLOW; URINE GLUCOSE-RANDOM 3+ (Negative); URINE KETONES NEGATIVE (Negative); URINE LEUKOCYTES-REFLEX NEGATIVE (Negative); URINE NITRITE-REFLEX NEGATIVE (Negative); URINE PROTEIN NEGATIVE (Negative); URINE SPECIFIC GRAVITY 1.015 (1.005-1.030); URINE UROBILINOGEN 0.2 E.U./dl (0.2-1.0)
[2019-07-26 10:48] LABS: BACTERIA-REFLEX 1-9 Few /HPF (None Seen); CASTS None Seen /LPF (None Seen); CRYSTALS None Seen /LPF (None Seen); SQUAMOUS 0-3 Few /LPF (0-3); URINE WBC-REFLEX 0-5 Rare /HPF (0-5)
[2019-07-26 10:49] LABS: URINE RBC >20 Many /HPF (0-2)
[2019-07-26] MEDS ORDERED: ZOFRAN ODT4 MG DISSOLVE (11:22)
[2019-07-26] MEDS ORDERED: KEFLEX500 M1 PO (11:22)
[2019-07-26] MEDS ORDERED: NORCO 5-325 TA1 EAC1 PO (11:22)
[2019-07-26] MEDS ORDERED: PHENAZOPYRIDIN200 M2 PO (11:22)
[2019-07-26 11:45] VITALS: BP 129/71
== END 2019-07-26 11:45 | disposition home or self-care (01) ==
LOC: M.ERS 08:17
PROVIDERS: Emergency Medicine Emergency Medical Services
DX: R31.9 Hematuria, unspecified (principal); R10.84 Generalized abdominal pain; F41.9 Anxiety disorder, unspecified; F31.9 Bipolar disorder, unspecified; E11.9 Type 2 diabetes mellitus without complications; F17.210 Nicotine dependence, cigarettes, uncomplicated; Z88.0 Allergy status to penicillin; Z88.6 Allergy status to analgesic agent; Z88.8 Allergy status to other drugs, medicaments and biological substances; Z87.442 Personal history of urinary calculi; Z86.711 Personal history of pulmonary embolism; Z86.19 Personal history of other infectious and parasitic diseases

== ENCOUNTER 2019-08-03 15:59 | Inpatient (IN) | payer MEDICAID ==
[~2019-08-03] VITALS: Ht 182.9 cm; Wt 93.9 kg
[~2019-08-03 15:59] MED LIST changes: +NOVOLOG100 UNIT/1 SUBQ; +PHENAZOPYRIDIN200 M2 PO; +ZOFRAN ODT4 MG DISSOLVE
[2019-08-03 16:04] VITALS: BP 131/84
[2019-08-03 16:56] LABS: ABSOLUTE BASOPHILS 0.1 thou/uL (0.0-0.2); ABSOLUTE EOSINOPHILS 0.2 thou/uL (0.0-0.7); ABSOLUTE LYMPHOCYTES 1.9 thou/uL (0.8-5.3); ABSOLUTE MONOCYTES 0.8 thou/uL (0.0-1.2); ABSOLUTE NEUTROPHILS 4.3 thou/uL (1.6-8.1); BASOPHILS 0.9 %; EOSINOPHILS 3.3 %; HEMATOCRIT 43.2 % (42.0-52.0); HEMOGLOBIN 15.1 gm/dL (14.0-18.0); LYMPHOCYTES 25.8 %; MCH 33.2 pg (26.0-34.0); MCHC 34.9 g/dL (28.0-37.0); MCV 95.2 fL (80.0-100.0); MONOCYTES 11.3 %; MPV 7.3 fl. (7.2-11.1); NUCLEATED RBCS 0 /100WBC; PLATELET COUNT* 260 thou/uL (150-400); POLYS 58.7 %; RBC 4.54 mil/uL (4.50-6.00); WBC 7.4 thou/uL (4.0-11.0)
[2019-08-03 17:28] LABS: CALCIUM 8.5 mg/dL (8.5-10.1); POTASSIUM 4.2 mmol/L (3.5-5.1)
[2019-08-03 17:33] LABS: ALBUMIN 3.9 g/dL (3.4-5.0); TOTAL BILIRUBIN 0.7 mg/dL (<0.1-1.0); TOTAL PROTEIN 7.3 g/dL (6.4-8.2)
[2019-08-03 17:42] LABS: APTT 24.3 Seconds (25.0-31.3); INR 0.9; PROTIME 9.4 Seconds (9.20-11.50)
[2019-08-03 18:23] LABS: URINE BILIRUBIN NEGATIVE (Negative); URINE BLOOD 3+ (Negative); URINE CLARITY CLEAR; URINE COLOR YELLOW; URINE GLUCOSE-RANDOM 3+ (Negative); URINE KETONES NEGATIVE (Negative); URINE LEUKOCYTES-REFLEX NEGATIVE (Negative); URINE NITRITE-REFLEX NEGATIVE (Negative); URINE PROTEIN TRACE (Negative); URINE SPECIFIC GRAVITY 1.025 (1.005-1.030); URINE UROBILINOGEN 0.2 E.U./dl (0.2-1.0)
[2019-08-03 18:31] LABS: SQUAMOUS >10 Many /LPF (0-3)
[2019-08-03 18:32] LABS: MUCUS None Seen strn/LPF (None Seen); URINE RBC >20 Many /HPF (0-2); URINE WBC-REFLEX 0-5 Rare /HPF (0-5)
[2019-08-03 18:33] LABS: CASTS None Seen /LPF (None Seen); CRYSTALS None Seen /LPF (None Seen)
[2019-08-03 18:34] LABS: AMP/METHAMP Negative (Negative); BACTERIA-REFLEX 1-9 Few /HPF (None Seen); BARBITURATES Negative (Negative); BENZODIAZEPINES Negative (Negative); COCAINE Negative (Negative); METHADONE Negative (Negative); OPIATES Negative (Negative); PCP Negative (Negative); THC POSITIVE (Negative)
[2019-08-03 20:00] VITALS: BP 137/79
[2019-08-03 20:06] VITALS: BP 137/79
--- NOTE | 2019-08-04 04:38 | NUR ---
PATIENT WAS REPORTING SEVERE PAIN THROUGHOUT SHIFT. HE HAS BEEN GIVEN FENTANL 25MCG Q2 AND DILAUDID 1 MG Q3 AND EDUCATION ON RELAXATION FOR FOR PAIN. UROLOGY IS TO BE CONSULTED FOR HEMATURIA AND SURGERY CALLED ABOUT FLANK PAIN. LAST BM 08/01/19 HIS STOMACH IS HARD AND DISTENDED. HE HAS CONCERNS ABOUT INSURANCE COVERAGE. WILL CONTINUE TO FOLLOW CARE PLAN.
[2019-08-04 08:00] VITALS: BP 140/84
--- NOTE | 2019-08-04 13:34 | NUR ---
PT HAS HAD POOR FOLLOWUPS D/T NOT BEING BALE TO FIND A UROLOGIST THAT ACCEPTS MEDICAID. PT STATES HE CALLED [facility] AND THEY DO NOT HAVE UROLOGY. PT PROVIDED WITH NUMBER TO [facility] TO MAKE A F/U APPT.
--- NOTE | 2019-08-04 15:58 | NUR ---
PT UP IN ROOM WITH STEADY GAIT. IVF INFUSING. MULTIPLE BMS TODAY AFTER MEDS GIVEN FOR CONSTIPATION. PT REPORTS RELIEF OF ABD PAIN. TOLERATING CLEAR LIQUID DIET WELL
--- NOTE | 2019-08-04 15:59 | NUR ---
PT UP IN ROOM WITH STEADY GAIT. PT REPORTS PRESSURE AND DYSURIA. VOIDING PER URINAL-PRISCILLA IN COLOR. IVF INFUSING. PAIN CONTROLLED WITH IV PAIN MEDS
[2019-08-04 16:15] VITALS: BP 121/61
[2019-08-04 20:59] VITALS: BP 127/76
--- NOTE | 2019-08-05 03:43 | NUR ---
ASSESSMENT: PT REMAIN ALERT AND ORIENT TIMES THREE. UP AD GINA TO THE BR AND AROUND THE ROOM. PRN PAIN MEDS GIVEN FOR CHRONIC FLANK PAIN, VSS, AFEBRILE. PT SLEPT MOST OF THE NIGHT BUT WAS AWAKE EARLIER PART OF THE MORNING. TOLERATING PO INTAKE. PT C/O A COUPLE OF SORES ON HIS LEFT FLANK AREA. THE SORES RESEMBLED POSSIBLE SHINGLES. PT SAID THAT HE WOULD SHOW THEM TO HIS DOCTOR TODAY. SLOW PROGRESS TOWARDS DC GOALS, WILL CONTINUE TO MONITOR.
[2019-08-05 08:02] VITALS: BP 123/83
[2019-08-05 12:18] VITALS: BP 123/83
[2019-08-05 14:35] VITALS: BP 116/80
--- NOTE | 2019-08-05 14:42 | EKG ---
[place] [address] ELECTROCARDIOGRAM REPORT Name: JAZZY STOCKTON Room: [address] ADM IN M.R.#: [id number] Admission: 08/03/19 Attend Phys: Solomon Cuevas, Discharge: Date of : 58 Report #: [id number] THIS REPORT FOR: //name// Test Date: 2019-08-05 Test Time: 12:17:34 Pat Name: JAZZY STOCKTON Department: Room: [address] Gender: M Regional Account Executive: : 1960 Requested By: Josh Davis Order Number: [id number] MD: Saad Dickinson Measurements Intervals [place] Rate: 79 P: 28 CA: 171 QRS: 27 QRSD: 89 T: 58 QT: 372 QTc: 427 Interpretive Statements Sinus rhythm Low voltage, extremity leads Compared to ECG 09/24/2018 12:14:24 No significant changes Electronically Signed On 08-05-2019 14:42:11 PROJ MGR by Saad Dickinson [email or web address] <ELECTRONICALLY SIGNED> By: Saad Dickinson MD, [facility] 08/05/19 1442 1217 16 Saad Dickinson MD, FAC /EPI
--- NOTE | 2019-08-05 18:53 | NUR ---
PT ARRIVED BACK FROM PACU ABOUT 183. VITALS STABLE. PAIN PARTIALLY CONTROLLED. TOLERATING LIQUID. HERNANDES PATENT, NO CLOTS. HAS NOT GOT UP. IV PATENT. ON 50% OX WITH MASK. FALL PRECAUTIONS IN PLACE. SO IN ROOM. CALL LIGHT WITHIN REACH. WILL CONTINUE TO MONITOR.
[2019-08-05 19:30] VITALS: BP 116/70
[2019-08-06 04:50] LABS: HEMATOCRIT 35.9 % (42.0-52.0); MCH 32.9 pg (26.0-34.0); MCHC 34.3 g/dL (28.0-37.0); MPV 7.4 fl. (7.2-11.1); RBC 3.73 mil/uL (4.50-6.00); RDW-CV 13.2 % (10.5-14.5); WBC 7.4 thou/uL (4.0-11.0)
[2019-08-06 04:52] LABS: HEMOGLOBIN 12.3 gm/dL (14.0-18.0)
[2019-08-06 05:05] LABS: ALBUMIN 3.1 g/dL (3.4-5.0); CALCIUM 7.9 mg/dL (8.5-10.1); MAGNESIUM 2.1 mg/dL (1.8-2.4); POTASSIUM 3.9 mmol/L (3.5-5.1); TOTAL PROTEIN 6.5 g/dL (6.4-8.2)
--- NOTE | 2019-08-06 05:54 | NUR ---
[facility] CARE FROM DAY SHIFT PT RESTING IN BED C/O PAIN AT PENIS AREA, NO REDNESS OR SWELLING NOTED URINE DRAINING WELL FROM CATHETER WITH CLEAR PINK URINE NO CLOTS NOTED, PT REQUESTING PAIN MEDICATION EVERY 2 HOURS. BLOOD GLUCOSE 149 . PT UP THIS AM HAD LARGE SOFT STOOL. WILL CONITNUE WITH CURRENT PLAN OF CARE, WILL REPORT ABNORMAL FINDINGS.
[2019-08-06 07:30] VITALS: BP 105/72
--- NOTE | 2019-08-06 12:00 | NUR ---
PT.IN CHAIR. ALERT AND ORIENTED. STATED HE BROKE HIS BACK AND R HIP SEVERAL YEARS AGO AND THAT IS WHEN HE BECAME DISABLED. HE ALSO HAS SEIZURE DISORDER. HE SAID HIS LAST SEIZURE WAS THE OTHER NIGHT LAST WEEK. HIS PRE SEIZURE BEHAVIOR IS GAGGING AND SWEATING. HE HAS A CANE AND WALKER AT HOME. HE SAID HE IS INDEPENDENT. HE DRIVES, ALTHOUGH STATED HE KNOWS HE IS NOT SUPPORSED TO WITH HAVING SEIZURES. RE EDUCATED ON DANGER OF THIS AND HE MAY NOT ONLY HURT HIMSELF BUT INOCCENT OTHERS. HE SAID HE HAS BEEN WITH HIS S.O. FOR ABOUT 15 YRS. HE SAID SO WE ARE LIKE COMMON LAW. SHE IS ALSO DISABLED. THEY LIVE SEPARATELY BUT SEE EACH OTHER DAILY. HE COOKS FOR HER AND DRIVES HER TO APPTS.,ETC. HE WAS ANXIOUS FOR UROLOGIST TO COME IN. CM WILL FOLLOW FOR ANY DISCHARGE NEEDS.
[2019-08-06 16:01] VITALS: BP 131/68
--- NOTE | 2019-08-06 17:01 | NUR ---
PT REMAINED ALERT AND ORIENTED. PT READY TO GO HOME TOMORROW. ORDER TO REMOVED HERNANDES AY 0600 FOR VOIDING TRIAL. PAIN MEDS GIVEN ORDERED. FALL RISK PRECAUTIONS IN PLACE. HOURLY ROUNDING COMPLETED. WILL CONTINUE TO MONITOR.
[2019-08-06 21:14] VITALS: BP 108/62
[2019-08-07] VITALS (7 sets, daily range): BP systolic 100–115; BP diastolic 50–62
--- NOTE | 2019-08-07 04:43 | NUR ---
ASSUMED CARE OF PT 08/06/19 AT APPROX 1930, PT A&OX4 THROUGHOUT SHIFT, VSS, PT UP AD GINA, ON ROOM AIR, HERNANDES IN PLACE, PAIN MEDS REQUESTED AND ADMINISTERED ORDERED, ASSESSMENTS AND HOURLY ROUNDINGS COMPLETED, WILL CONTINUE TO MONITOR.
[2019-08-07] MEDS ORDERED: CIPRO500 M1 PO (14:25)
[2019-08-07] MEDS ORDERED: PYRIDIUM100 M1 PO (14:25)
[2019-08-07] MEDS ORDERED: LEVSIN0.125 MG PO (14:26)
[2019-08-07] MEDS ORDERED: HYDROCODON-ACE1 EA12 PO (14:27)
--- NOTE | 2019-08-07 14:56 | NUR ---
PT.HAS DISCHARGE ORDERS. HE WILL NEED TRANSPORTATION HOME. HE REQUESTED A CAB. ASKED IF HE HAD MONEY HERE TO PAY FOR ONE. HE SAID HE DID NOT . WILL SET UP [employer]. NURSING WILL WORK ON DISCHARGE INSTRUCTIONS PRIOR TO RIDE BEING SET UP.
--- NOTE | 2019-08-07 16:06 | PATH ---
[address] [address] PATHOLOGY RPT PROCEDURE Name: JAZZY ABURTO Room: [address] IN .R.#: [id number] Admission: 08/03/19 Date of : 58 Discharge: Report #: [id number] Path Case #: [id number] LCA Accession Number: [id number] . 01 Material submitted: . bladder - BLADDER TUMOR . 01 Clinical history: . Large bladder tumor . 02 Diagnosis: Urinary bladder tumor, removal: - PAPILLARY UROTHELIAL CARCINOMA, LOW-GRADE WITH FOCAL HIGH-GRADE AREAS. - Portions of muscularis propria present with no evidence of invasion. . (Please see comment) (JANNETH:barbara; 08/07/2019) QTP 08/07/2019 1015 Local . 02 Comment: This case has also been reviewed by Dr. Salinas Easton MD who agrees with the diagnosis. (SKM:pit; 08/07/2019) . 02 Electronically signed: . Chidi Gallagher MD, Pathologist NPI- [id number] . 01 Gross description: . The specimen is received in formalin, labeled "Jazzy Aburto, bladder tumor". Received are multiple segments of pink-churchill, partially friable soft tissue measuring 2.2 x 1.9 x 0.5 cm in aggregate dimensions. The specimen is filtered and entirely spitted in cassette A1. (CAA; 08/06/2019) QAC/QA 08/06/2019 1137 Local . 02 Pathologist provided ICD-10: C67.9 . 02 CPT . 775785 Specimen Comment: A courtesy copy of this report has been sent to [phone] Specimen Comment: [phone], Specimen Comment: Report sent to ,DR SNELL / DR VOGT Performed at: [id number] [place] [address] PATHOLOGY RPT PROCEDURE Name: KATHJAZZY BISHOP Room: [address] IN M.R.#: [id number] Admission: 08/03/19 Date of : 58 Discharge: Report #: [id number] Path Case #: [id number] MD Semaj Desouza MD Phone: [phone] Performed at: 02 [facility] [address], [place], [place] [address] MD Yoshi Adams MD Phone: [phone]
--- NOTE | 2019-08-07 16:53 | NUR ---
PT GIVEN DISCHARGE INFORMATION, CARE NOTES, AND PRESCRIPTIONS. IV REMOVED. PT [employer] TRANSPORT SET UP. PT LEFT VIA WHEELCHAIR WITH NURSING STAFF TO HOME. FALL RISK PRECAUTIONS IN PLACE. HOURLY ROUNDING COMPLETED.
--- NOTE | 2019-08-13 20:43 | OP ---
[address] [address] OPERATIVE REPORT Name: KATHJAZZYTR ALAS Room: [address]#: [id number] Admission: 08/03/19 Attend Phys: Solomon Cuevas, Discharge: 08/07/19 Date of : 58 Report #: [id number] THIS REPORT FOR: //name// CC: Salinas Byrne Solomon Cuevas DATE OF SERVICE: 08/05/2019 INDICATION FOR PROCEDURE: The patient is a 59-year-old gentleman who presented through the Emergency Department over the weekend with recurrent gross hematuria associated with clot retention. Evaluation in the ED with CT scan revealed posterior bladder wall lesions, which were suspicious for bladder cancer. After discussing treatment options in detail, he presents for cystoscopy with possible transurethral resection of bladder tumor. PREOPERATIVE DIAGNOSIS: Bladder mass associated with gross hematuria. POSTOPERATIVE DIAGNOSIS: Bladder mass associated with gross hematuria. PROCEDURES: Cystoscopy, transurethral resection of multiple bladder tumors, left retrograde pyelogram, left double J stent placement. SURGEON: Josh Davis MD ANESTHESIA: General. COMPLICATIONS: None. ESTIMATED BLOOD LOSS: Minimal. PROCEDURE IN DETAIL: The patient was consented for the above procedures given broad spectrum IV antibiotics. Preoperatively, he was given general anesthetic and placed in a dorsal lithotomy position. He was prepped and draped in the usual sterile fashion over the genitalia. Cystoscopy was performed with a 20-Jordanian sheath and 70 and 30-degree lenses. This revealed a normal anterior urethra. Prostatic urethra had evidence of moderate bilobar hyperplasia with prostate that was partially obstructing. Examination of the bladder itself revealed multiple medium and large size bladder tumors involving the trigone very close to both ureteral orifices and multiple larger tumors on the posterior bladder wall and on the dome of the bladder. He had diffuse erythematous changes near these tumors. The right ureteral orifice was easily identified just lateral to multiple small tumors. The left ureteral orifice was completely covered by tumor. Hydronephrosis was not noted on CT scan. Based on that, the cystoscope was removed. The 24-Jordanian resectoscope sheath was placed with the aid of an obturator and then using a 24-Jordanian loop, transurethral resection of bladder tumors was performed. This was initially performed by resecting the [address] [address] OPERATIVE REPORT Name: JAZZY STOCKTON Room: [address]#: [id number] Admission: 08/03/19 Attend Phys: Solomon Cuevas, Discharge: 08/07/19 Date of : 58 Report #: [id number] tumors near the right ureteral orifice. These were resected down into the detrusor muscle and very close to but not involving the right ureteral orifice. Next, the larger tumors in the midline of the posterior bladder wall were resected also down into the detrusor muscle. These were the largest two tumors and were resected in multiple sections, but were resected in their entirety. There was a fairly large tumor covering the left ureteral orifice. This was resected completely and a resection was performed right over the ureteral orifice. The ureteral orifice was easily identified, however. There were dome lesions that were very difficult to get to, but were resected and then there was another lesion on the left lateral wall near the dome, which was very difficult to get to as well based on the patient's anatomy, which was fulgurated. There was no evidence of perivesical fat or any complications. Once all the larger tumors were resected, they were all removed from the bladder via the resectoscope sheath will be sent off for pathologic evaluation. Each tumor bed was then fulgurated for hemostatic purposes as well as several erythematous areas around the tumors which look very suspicious for carcinoma in situ. Once hemostasis was adequately controlled, the resectoscope was removed. The cystoscope was replaced and using the 30-degree lens and a 5-Jordanian Sepideh, a left retrograde pyelogram was performed. This revealed a normal caliber ureter without extravasation and no hydronephrosis. 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 Based on the resection; however, I elected to place a wire up the left ureter and then a 4.8 x 28 double-J stent was passed over the wire with a good curl noted in the lower pole of the kidney as well as the bladder. Clear urine drained. Once the stent was in place, the cystoscope was removed and the resectoscope sheath was replaced and then the 24-Jordanian loop was used to fulgurate each tumor bed and any mucosa that looked suspicious for carcinoma in situ. This was a multifocal tumor and although everything that was looked suspicious was fulgurated or resected. A repeat cystoscopy will be needed in the near future for reevaluation. The patient tolerated procedure very well. Once I was comfortable with hemostasis, the cystoscope was removed. Lidocaine gel was placed per urethra for local anesthesia. A 22-Jordanian 3-way catheter was placed without difficulty and B and O suppository was placed per rectum for prevention of bladder spasms. The patient tolerated procedure very well, was awakened and sent to recovery room in stable condition. <ELECTRONICALLY SIGNED> By: Josh Davis MD 08/13/19 2043 1657 1939MD aleksandra Palencia
== END 2019-08-07 17:00 | disposition home or self-care (01) | DRG 658 ==
LOC: M.ERS 15:59 → M.TBA-ER 17:02 → M.ORTHSURG 17:02
PROVIDERS: Physician Assistant; ADMIT Family Medicine
PROC: BT1F1ZZ Fluoroscopy of Left Kidney, Ureter and Bladder using Low Osmolar Contrast (ICD-10-PCS; principal; 2019-08-05)
PROC: 0T778DZ Dilation of Left Ureter with Intraluminal Device, Via Natural or Artificial Opening Endoscopic (ICD-10-PCS; principal; 2019-08-05)
PROC: 0VT08ZZ Resection of Prostate, Via Natural or Artificial Opening Endoscopic (ICD-10-PCS; principal; 2019-08-05)
DX: D49.4 Neoplasm of unspecified behavior of bladder (principal); G89.29 Other chronic pain; M54.9 Dorsalgia, unspecified; F32.9 Major depressive disorder, single episode, unspecified; F41.9 Anxiety disorder, unspecified; I10 Essential (primary) hypertension; F12.90 Cannabis use, unspecified, uncomplicated; E11.65 Type 2 diabetes mellitus with hyperglycemia; N32.9 Bladder disorder, unspecified; R31.0 Gross hematuria; E27.9 Disorder of adrenal gland, unspecified; Z86.19 Personal history of other infectious and parasitic diseases; Z87.81 Personal history of (healed) traumatic fracture; Z87.442 Personal history of urinary calculi; Z86.711 Personal history of pulmonary embolism; Z88.0 Allergy status to penicillin; Z88.8 Allergy status to other drugs, medicaments and biological substances; Z87.891 Personal history of nicotine dependence; Z83.3 Family history of diabetes mellitus; Z80.42 Family history of malignant neoplasm of prostate; Z28.21 Immunization not carried out because of patient refusal

== ENCOUNTER 2019-08-16 16:03 | Inpatient (IN) | payer MEDICAID ==
[~2019-08-16] VITALS: Ht 182.9 cm; Wt 93.9 kg
[~2019-08-16 16:03] MED LIST changes: +CIPRO500 M1 PO; +HYDROCODON-ACE1 EA12 PO; +LEVSIN0.125 MG PO; +PYRIDIUM100 M1 PO
[2019-08-16 16:19] VITALS: BP 145/85
[2019-08-16 16:29] LABS: URINE CLARITY TURBID; URINE COLOR RED
[2019-08-16 16:34] LABS: SQUAMOUS 0-3 Few /LPF (0-3)
[2019-08-16 16:35] LABS: BACTERIA-REFLEX >30 Many /HPF (None Seen); CASTS None Seen /LPF (None Seen); CRYSTALS None Seen /LPF (None Seen); URINE RBC >20 Many /HPF (0-2)
[2019-08-16 17:06] LABS: ABSOLUTE BASOPHILS 0.1 thou/uL (0.0-0.2); ABSOLUTE EOSINOPHILS 0.1 thou/uL (0.0-0.7); ABSOLUTE LYMPHOCYTES 2.2 thou/uL (0.8-5.3); ABSOLUTE NEUTROPHILS 7.1 thou/uL (1.6-8.1); BASOPHILS 1.3 %; EOSINOPHILS 1.4 %; HEMATOCRIT 44.3 % (42.0-52.0); HEMOGLOBIN 15.5 gm/dL (14.0-18.0); MCH 33.1 pg (26.0-34.0); MCV 94.7 fL (80.0-100.0); MPV 7.1 fl. (7.2-11.1); NUCLEATED RBCS 0 /100WBC; PLATELET COUNT* 476 thou/uL (150-400); POLYS 67.3 %; RBC 4.68 mil/uL (4.50-6.00); RDW-CV 13.5 % (10.5-14.5); WBC 10.6 thou/uL (4.0-11.0)
[2019-08-16 17:22] LABS: CALCIUM 9.6 mg/dL (8.5-10.1); CREATININE 1.2 mg/dL (0.6-1.3)
--- NOTE | 2019-08-16 17:56 | NUR ---
PT STATES THAT "CT TOLD HIM THAT HE IS HERE A LOT AND THAT HE IS NOT REALLY SICK AND THEY ARE WASTING THEIR TIME". PT IS "ALSO REQUESTING A PAIN SHOT". CHARGE NURSE AND NIKOLAI BAI NOTIFIED AT THIS TIME.
[2019-08-16 18:36] VITALS: BP 118/73
[2019-08-16 18:57] VITALS: BP 100/66
--- NOTE | 2019-08-16 18:59 | NUR ---
PT ADMITTED TO UNIT WITH HEMATURIA. PHYSICIAN NOTIFIED OF DIARRHEA EPIDOSES AND FOR PAIN MEDS. PT FALL RISK PRECAUTIONS IN PLACE. WILL CONTINUE TO MONITOR.
[2019-08-17 01:00] VITALS: BP 123/79
[2019-08-17 04:25] LABS: CALCIUM 8.4 mg/dL (8.5-10.1); CREATININE 1.1 mg/dL (0.6-1.3); POTASSIUM 4.3 mmol/L (3.5-5.1)
--- NOTE | 2019-08-17 04:46 | NUR ---
PATIENT ALERT AND ORIENTED X 4 THROUGHOUT THE SHIFT AND RESTING AT INTERVALS ON HOURLY ROUNDS. UROLOGY RETURNED CALL REGARDING CONSULT AT SHIFT CHANGE REQUESTING A BLADDER SCAN. SCAN COMPLETED PRIOR TO 1999 WITH RESULTS AT 55 ML. HAS BEEN URINATING DURING THE NIGHT IN AMOUNTS 100-180 ML PER VOID. SOME BLOOD TINTING NOTED. NO CLOTS OBSERVED. HOME MEDS RESTARTED. HS BLOOD SUGAR 174. MEDICATED FOR PAIN Q4H. VITAL SIGNS STABLE. CONTINUE TO MONITOR.
[2019-08-17 09:28] VITALS: BP 134/68
[2019-08-17 10:38] VITALS: BP 134/68
[2019-08-17] MEDS ORDERED: NORCO 7.5-3251 EACH PO (10:46)
[2019-08-17] MEDS ORDERED: CIPRO500 M1 PO (10:46)
--- NOTE | 2019-08-17 11:23 | NUR ---
PT DISCHARGED TO HOME WITH NURSING STAFF AND AT 1115. IV OUT. PT STABLE UPON DISCHARGE. PAIN CONTROLLED. PRESCRIPTIONS EFAXED TO PHARMACY BY DR DUNAWAY. PERSONAL BELONGINGS SENT WITH PT.
== END 2019-08-17 11:15 | disposition home or self-care (01) | DRG 687 ==
LOC: M.ERS 16:03 → M.TBA-ER 18:01 → M.ORTHSURG 18:01
PROVIDERS: Nurse Practitioner; ADMIT Internal Medicine
DX: C67.9 Malignant neoplasm of bladder, unspecified (principal); N30.01 Acute cystitis with hematuria; F31.9 Bipolar disorder, unspecified; E11.9 Type 2 diabetes mellitus without complications; G89.29 Other chronic pain; M54.9 Dorsalgia, unspecified; F41.9 Anxiety disorder, unspecified; I10 Essential (primary) hypertension; Z96.659 Presence of unspecified artificial knee joint; R30.0 Dysuria; Z86.19 Personal history of other infectious and parasitic diseases; Z87.442 Personal history of urinary calculi; Z88.0 Allergy status to penicillin; Z88.8 Allergy status to other drugs, medicaments and biological substances; Z87.891 Personal history of nicotine dependence; Z83.3 Family history of diabetes mellitus; Z80.42 Family history of malignant neoplasm of prostate

== ENCOUNTER 2019-08-26 17:41 | Emergency (ER) | payer MEDICAID ==
[~2019-08-26] VITALS: Ht 182.9 cm; Wt 93.9 kg
[~2019-08-26 17:41] MED LIST changes: -LEVEMIR SUBQ; +LEVEMIR100 UNIT/2 SUBQ; +NORCO 7.5-3251 EACH PO
[2019-08-26 18:10] LABS: ICTOTEST (BILI CONFIRMATORY) Negative (Negative); URINE BILIRUBIN 1+ (Negative); URINE BLOOD 3+ (Negative); URINE GLUCOSE-RANDOM TRACE (Negative); URINE KETONES NEGATIVE (Negative); URINE LEUKOCYTES-REFLEX 1+ (Negative); URINE NITRITE-REFLEX POSITIVE (Negative); URINE PROTEIN 3+ (Negative); URINE SPECIFIC GRAVITY >= 1.030 (1.005-1.030)
[2019-08-26 18:11] LABS: URINE CLARITY HAZY; URINE COLOR DARK YELLOW
[2019-08-26 18:16] LABS: ABSOLUTE BASOPHILS 0.1 thou/uL (0.0-0.2); ABSOLUTE EOSINOPHILS 0.3 thou/uL (0.0-0.7); ABSOLUTE LYMPHOCYTES 2.5 thou/uL (0.8-5.3); ABSOLUTE MONOCYTES 0.9 thou/uL (0.0-1.2); EOSINOPHILS 2.9 %; HEMOGLOBIN 15.2 gm/dL (14.0-18.0); LYMPHOCYTES 25.7 %; MCH 33.2 pg (26.0-34.0); MCHC 35.4 g/dL (28.0-37.0); MCV 93.9 fL (80.0-100.0); MONOCYTES 8.9 %; MPV 6.7 fl. (7.2-11.1); NUCLEATED RBCS 0 /100WBC; PLATELET COUNT* 368 thou/uL (150-400); POLYS 61.5 %; RBC 4.58 mil/uL (4.50-6.00); RDW-CV 13.6 % (10.5-14.5); WBC 9.7 thou/uL (4.0-11.0)
[2019-08-26 18:18] LABS: CASTS None Seen /LPF (None Seen); CRYSTALS None Seen /LPF (None Seen); SQUAMOUS >10 Many /LPF (0-3); URINE RBC >20 Many /HPF (0-2); URINE WBC-REFLEX 6-15 Few /HPF (0-5)
[2019-08-26 18:26] LABS: CALCIUM 8.6 mg/dL (8.5-10.1); CREATININE 1.2 mg/dL (0.6-1.3); POTASSIUM 3.8 mmol/L (3.5-5.1)
[2019-08-26 18:31] LABS: ALBUMIN 3.9 g/dL (3.4-5.0); TOTAL BILIRUBIN 0.7 mg/dL (<0.1-1.0); TOTAL PROTEIN 7.8 g/dL (6.4-8.2)
[2019-08-26] MEDS ORDERED: BACTRIM DS TAB1 EACH PO (19:52)
[2019-08-26 20:23] LABS: AMP/METHAMP Negative (Negative); BARBITURATES Negative (Negative); BENZODIAZEPINES POSITIVE (Negative); COCAINE Negative (Negative); METHADONE Negative (Negative); OPIATES POSITIVE (Negative); PCP Negative (Negative); THC POSITIVE (Negative)
[2019-08-26] MEDS ORDERED: NORCO 5-325 TA1 EAC1 PO (21:20)
[2019-08-26 21:36] VITALS: BP 107/54
== END 2019-08-26 21:36 | disposition home or self-care (01) ==
LOC: M.ERS 17:41
PROVIDERS: Physician Assistant
DX: Z53.21 Procedure and treatment not carried out due to patient leaving prior to being seen by health care provider (principal)

== ENCOUNTER 2019-08-27 16:46 | Inpatient (IN) | payer MEDICAID ==
[~2019-08-27] VITALS: Ht 182.9 cm; Wt 93.0 kg
[2019-08-27] VITALS (9 sets, daily range): BP systolic 101–140; BP diastolic 60–85
[2019-08-27 17:04] LABS: ABSOLUTE BASOPHILS 0.1 thou/uL (0.0-0.2); ABSOLUTE EOSINOPHILS 0.4 thou/uL (0.0-0.7); ABSOLUTE LYMPHOCYTES 3.5 thou/uL (0.8-5.3); BASOPHILS 0.9 %; EOSINOPHILS 4.4 %; HEMATOCRIT 46.3 % (42.0-52.0); HEMOGLOBIN 16.2 gm/dL (14.0-18.0); LYMPHOCYTES 34.5 %; MCH 32.5 pg (26.0-34.0); MCHC 34.9 g/dL (28.0-37.0); MONOCYTES 10.1 %; NUCLEATED RBCS 0 /100WBC; PLATELET COUNT* 399 thou/uL (150-400); POLYS 50.1 %; RBC 4.98 mil/uL (4.50-6.00); RDW-CV 13.6 % (10.5-14.5)
[2019-08-27 17:09] LABS: URINE BILIRUBIN NEGATIVE (Negative); URINE BLOOD 3+ (Negative); URINE CLARITY SL CLOUDY; URINE COLOR ORANGE; URINE GLUCOSE-RANDOM 3+ (Negative); URINE KETONES NEGATIVE (Negative); URINE LEUKOCYTES-REFLEX TRACE (Negative); URINE PROTEIN 2+ (Negative)
[2019-08-27 17:13] LABS: URINE NITRITE-REFLEX POSITIVE (Negative)
[2019-08-27 17:15] LABS: APTT 23.6 Seconds (25.0-31.3); INR 0.9; PROTIME 9.1 Seconds (9.20-11.50)
[2019-08-27 17:18] LABS: CALCIUM 8.7 mg/dL (8.5-10.1); CREATININE 1.1 mg/dL (0.6-1.3); POTASSIUM 3.4 mmol/L (3.5-5.1)
[2019-08-27 17:24] LABS: ALBUMIN 4.3 g/dL (3.4-5.0); TOTAL BILIRUBIN 0.9 mg/dL (<0.1-1.0); TOTAL PROTEIN 8.2 g/dL (6.4-8.2)
[2019-08-27 17:24] LABS: BACTERIA-REFLEX >30 Many /HPF (None Seen); MUCUS 0-3 Light strn/LPF (None Seen); SQUAMOUS 0-3 Few /LPF (0-3); URINE RBC >20 Many /HPF (0-2); URINE WBC-REFLEX >25 Many /HPF (0-5)
[2019-08-27 17:25] LABS: CASTS None Seen /LPF (None Seen); CRYSTALS None Seen /LPF (None Seen)
[2019-08-28] VITALS (10 sets, daily range): BP systolic 101–119; BP diastolic 49–63
[2019-08-28 04:13] LABS: ABSOLUTE BASOPHILS 0.1 thou/uL (0.0-0.2); ABSOLUTE EOSINOPHILS 0.4 thou/uL (0.0-0.7); ABSOLUTE LYMPHOCYTES 2.2 thou/uL (0.8-5.3); ABSOLUTE MONOCYTES 0.8 thou/uL (0.0-1.2); ABSOLUTE NEUTROPHILS 4.6 thou/uL (1.6-8.1); BASOPHILS 1.3 %; EOSINOPHILS 4.6 %; HEMATOCRIT 40.4 % (42.0-52.0); LYMPHOCYTES 27.5 %; MCH 32.1 pg (26.0-34.0); MCHC 33.9 g/dL (28.0-37.0); MCV 94.7 fL (80.0-100.0); MONOCYTES 9.8 %; MPV 6.8 fl. (7.2-11.1); NUCLEATED RBCS 0 /100WBC; POLYS 56.8 %; RBC 4.27 mil/uL (4.50-6.00); RDW-CV 13.3 % (10.5-14.5); WBC 8.1 thou/uL (4.0-11.0)
[2019-08-28 04:36] LABS: HEMOGLOBIN 13.7 gm/dL (14.0-18.0)
[2019-08-28 04:37] LABS: PLATELET COUNT* 317 thou/uL (150-400)
[2019-08-28 04:41] LABS: ALBUMIN 3.1 g/dL (3.4-5.0); CALCIUM 7.9 mg/dL (8.5-10.1); POTASSIUM 3.7 mmol/L (3.5-5.1); TOTAL BILIRUBIN 0.5 mg/dL (<0.1-1.0); TOTAL PROTEIN 6.3 g/dL (6.4-8.2)
--- NOTE | 2019-08-28 11:09 | EKG ---
[place] [address] ELECTROCARDIOGRAM REPORT Name: JAZZY STOCKTON Room: [address] ADM IN .R.#: [id number] Admission: 08/27/19 Attend Phys: Amaya Ritter Discharge: Date of : 58 Report #: [id number] THIS REPORT FOR: //name// [facility] ED Test Date: 2019-08-27 Test Time: 17:01:41 Pat Name: JAZZY STOCKTON Department: Room: [facility] Gender: M Back Tacker: : 1960 Requested By: Gilles Flor Order Number: [id number] MD: Josh York Measurements Intervals [place] Rate: 79 P: 35 CT: 173 QRS: -6 QRSD: 110 T: 59 QT: 382 QTc: 438 Interpretive Statements Sinus rhythm Multiple ventricular premature complexes Low voltage, extremity leads Compared to ECG 08/05/2019 12:17:34 Ventricular premature complex(es) now present Electronically Signed On 08-28-2019 11:09:01 [employer] AIR CONDITIONING APPRENTICE by Josh York [email or web address] <ELECTRONICALLY SIGNED> By: Josh York MD, FACC 08/28/19 1109 170 170 Josh York MD, FAC /EPI
[2019-08-29] VITALS: BP 111/57
[2019-08-29 02:06] LABS: GLYCOHEMOGLOBIN (HGB A1C) 9.9 % (4.8-5.6)
[2019-08-29 04:00] VITALS: BP 122/53
[2019-08-29 08:00] VITALS: BP 118/78
[2019-08-29] MEDS ORDERED: MELATONIN10 M2 PO (11:27)
[2019-08-29] MEDS ORDERED: OXYBUTYNIN 5 MG5 M2 PO (11:29)
[2019-08-29] MEDS ORDERED: FLOMAX0.4 MG PO (11:33)
[2019-08-29 11:34] VITALS: BP 118/78
--- NOTE | 2019-09-06 13:36 | EEG ---
[address] [address] EEG STUDY REPORT Name: JAZZY STOCKTON Room: [address]#: [id number] Admission: 08/27/19 Attend Phys: Amaya Ritter Discharge: 08/29/19 Date of : 58 Report #: [id number] THIS REPORT FOR: //name// CC: [facility] physician/PCP Jesse Stevens This patient had an episode of seizure. EEG is being done to further evaluate that. EEG was done by placing the electrode by standard 10-20 system of electrode placement. Both referential and sequential montages were used for recording. Background activity in this patient's EEG is about 10 Hz and 30 microvolt. There is a symmetrical activity. Photic stimulation is unremarkable. The patient became drowsy and that is associated with bilateral slowing and vertex sharp waves. Throughout the record, no active epileptiform activity was noticed. IMPRESSION: This patient's EEG is unremarkable. <ELECTRONICALLY SIGNED> By: Jac Mcbride MD 09/06/19 1336 1426 1520Jac Mcbride MD /nt
== END 2019-08-29 12:14 | disposition home or self-care (01) | DRG 639 ==
LOC: M.ERS 16:46 → M.TBA-ER 17:34 → M.ICU 18:21 → M.2W 08-28 08:42
PROVIDERS: Family Medicine; ADMIT Internal Medicine
DX: E11.649 Type 2 diabetes mellitus with hypoglycemia without coma (principal); G89.29 Other chronic pain; M54.9 Dorsalgia, unspecified; F32.9 Major depressive disorder, single episode, unspecified; F41.9 Anxiety disorder, unspecified; I10 Essential (primary) hypertension; G40.909 Epilepsy, unspecified, not intractable, without status epilepticus; N30.91 Cystitis, unspecified with hematuria; R39.15 Urgency of urination; R35.0 Frequency of micturition; Z86.711 Personal history of pulmonary embolism; Z86.19 Personal history of other infectious and parasitic diseases; Z87.442 Personal history of urinary calculi; Z88.0 Allergy status to penicillin; Z88.8 Allergy status to other drugs, medicaments and biological substances; Z87.891 Personal history of nicotine dependence; Z83.3 Family history of diabetes mellitus; Z80.0 Family history of malignant neoplasm of digestive organs

== ENCOUNTER 2019-09-11 10:26 | Emergency (ER) | payer MEDICAID ==
[~2019-09-11] VITALS: Ht 182.9 cm; Wt 93.9 kg
[~2019-09-11 10:26] MED LIST changes: +FLOMAX0.4 MG PO; +MELATONIN10 M2 PO; +OXYBUTYNIN 5 MG5 M2 PO
[2019-09-11] MEDS ORDERED: METFORMIN HCL500 M3 PO (10:37)
[2019-09-11 11:03] LABS: URINE BLOOD 3+ (Negative); URINE CLARITY CLOUDY; URINE COLOR DARK YELLOW; URINE GLUCOSE-RANDOM TRACE (Negative); URINE KETONES NEGATIVE (Negative); URINE LEUKOCYTES-REFLEX 1+ (Negative); URINE NITRITE-REFLEX NEGATIVE (Negative); URINE PROTEIN 1+ (Negative)
[2019-09-11 11:04] LABS: URINE BILIRUBIN 1+ (Negative)
[2019-09-11 11:07] LABS: ICTOTEST (BILI CONFIRMATORY) Negative (Negative)
[2019-09-11 11:08] LABS: CASTS None Seen /LPF (None Seen); CRYSTALS None Seen /LPF (None Seen); SQUAMOUS 0-3 Few /LPF (0-3); URINE RBC >20 Many /HPF (0-2); URINE WBC-REFLEX 0-5 Rare /HPF (0-5)
[2019-09-11 11:35] LABS: ABSOLUTE BASOPHILS 0.1 thou/uL (0.0-0.2); ABSOLUTE EOSINOPHILS 0.2 thou/uL (0.0-0.7); ABSOLUTE LYMPHOCYTES 1.7 thou/uL (0.8-5.3); ABSOLUTE MONOCYTES 0.6 thou/uL (0.0-1.2); ABSOLUTE NEUTROPHILS 3.9 thou/uL (1.6-8.1); BASOPHILS 1.2 %; EOSINOPHILS 3.4 %; HEMATOCRIT 41.1 % (42.0-52.0); LYMPHOCYTES 26.5 %; MCH 32.5 pg (26.0-34.0); MCHC 34.1 g/dL (28.0-37.0); MCV 95.2 fL (80.0-100.0); MONOCYTES 9.2 %; MPV 6.9 fl. (7.2-11.1); NUCLEATED RBCS 0 /100WBC; PLATELET COUNT* 317 thou/uL (150-400); POLYS 59.7 %; RBC 4.32 mil/uL (4.50-6.00); RDW-CV 13.8 % (10.5-14.5); WBC 6.5 thou/uL (4.0-11.0)
[2019-09-11 11:42] LABS: CALCIUM 8.3 mg/dL (8.5-10.1); CREATININE 1.2 mg/dL (0.6-1.3)
[2019-09-11 11:46] LABS: ALBUMIN 3.7 g/dL (3.4-5.0); TOTAL BILIRUBIN 0.6 mg/dL (<0.1-1.0); TOTAL PROTEIN 7.3 g/dL (6.4-8.2)
[2019-09-11] MEDS ORDERED: PYRIDIUM100 M1 PO (12:22)
[2019-09-11] MEDS ORDERED: BACTRIM DS TAB1 EACH PO (12:22)
[2019-09-11 12:55] VITALS: BP 115/44
== END 2019-09-11 12:57 | disposition home or self-care (01) ==
LOC: M.ERS 10:26
PROVIDERS: Emergency Medicine Emergency Medical Services
DX: N39.0 Urinary tract infection, site not specified (principal); I10 Essential (primary) hypertension; F32.9 Major depressive disorder, single episode, unspecified; F41.9 Anxiety disorder, unspecified; G89.29 Other chronic pain; M54.9 Dorsalgia, unspecified; E11.9 Type 2 diabetes mellitus without complications; F17.210 Nicotine dependence, cigarettes, uncomplicated; Z86.018 Personal history of other benign neoplasm; Z79.4 Long term (current) use of insulin; Z88.0 Allergy status to penicillin; Z88.6 Allergy status to analgesic agent; Z88.8 Allergy status to other drugs, medicaments and biological substances

== ENCOUNTER 2019-09-25 09:55 | Emergency (ER) | payer MEDICAID ==
[~2019-09-25] VITALS: Ht 182.9 cm; Wt 94.3 kg
[~2019-09-25 09:55] MED LIST changes: +METFORMIN HCL500 M3 PO
[2019-09-25 10:43] LABS: URINE BILIRUBIN NEGATIVE (Negative); URINE BLOOD 3+ (Negative); URINE CLARITY SL CLOUDY; URINE COLOR YELLOW; URINE GLUCOSE-RANDOM 1+ (Negative); URINE KETONES NEGATIVE (Negative); URINE LEUKOCYTES-REFLEX 1+ (Negative); URINE NITRITE-REFLEX NEGATIVE (Negative); URINE PROTEIN 3+ (Negative); URINE SPECIFIC GRAVITY >= 1.030 (1.005-1.030); URINE UROBILINOGEN 0.2 E.U./dl (0.2-1.0)
[2019-09-25 10:52] LABS: SQUAMOUS 0-3 Few /LPF (0-3)
[2019-09-25 10:53] LABS: CASTS None Seen /LPF (None Seen); MUCUS >6 Heavy strn/LPF (None Seen); URINE RBC >20 Many /HPF (0-2); URINE WBC-REFLEX 6-15 Few /HPF (0-5)
[2019-09-25 10:54] LABS: CRYSTALS None Seen /LPF (None Seen)
[2019-09-25 11:15] LABS: ABSOLUTE BASOPHILS 0.1 thou/uL (0.0-0.2); ABSOLUTE EOSINOPHILS 0.2 thou/uL (0.0-0.7); ABSOLUTE LYMPHOCYTES 1.7 thou/uL (0.8-5.3); ABSOLUTE MONOCYTES 0.7 thou/uL (0.0-1.2); ABSOLUTE NEUTROPHILS 4.5 thou/uL (1.6-8.1); BASOPHILS 1.1 %; EOSINOPHILS 2.9 %; HEMATOCRIT 38.6 % (42.0-52.0); HEMOGLOBIN 13.4 gm/dL (14.0-18.0); LYMPHOCYTES 23.1 %; MCH 32.9 pg (26.0-34.0); MCHC 34.8 g/dL (28.0-37.0); MCV 94.7 fL (80.0-100.0); MONOCYTES 9.8 %; MPV 6.6 fl. (7.2-11.1); NUCLEATED RBCS 0 /100WBC; PLATELET COUNT* 323 thou/uL (150-400); POLYS 63.1 %; RBC 4.08 mil/uL (4.50-6.00); RDW-CV 13.6 % (10.5-14.5); WBC 7.2 thou/uL (4.0-11.0)
[2019-09-25 11:23] LABS: CALCIUM 9.1 mg/dL (8.5-10.1); POTASSIUM 3.6 mmol/L (3.5-5.1)
[2019-09-25 11:27] LABS: ALBUMIN 3.5 g/dL (3.4-5.0); TOTAL BILIRUBIN 0.6 mg/dL (<0.1-1.0); TOTAL PROTEIN 7.1 g/dL (6.4-8.2)
[2019-09-25] MEDS ORDERED: PYRIDIUM100 M1 PO (14:27)
[2019-09-25] MEDS ORDERED: LEVAQUIN 500 M500 M3 PO (14:27)
[2019-09-25] MEDS ORDERED: PERCOCET 7.5-31 EAC1 PO (14:27)
[2019-09-25 15:40] VITALS: BP 113/64
== END 2019-09-25 15:44 | disposition home or self-care (01) ==
LOC: M.ERS 09:55
PROVIDERS: Personal Emergency Response Attendant
DX: N32.89 Other specified disorders of bladder (principal); R31.9 Hematuria, unspecified; E11.9 Type 2 diabetes mellitus without complications; F41.9 Anxiety disorder, unspecified; F31.9 Bipolar disorder, unspecified; I10 Essential (primary) hypertension; G89.29 Other chronic pain; M54.9 Dorsalgia, unspecified; F17.210 Nicotine dependence, cigarettes, uncomplicated; Z87.442 Personal history of urinary calculi; Z98.890 Other specified postprocedural states; Z79.4 Long term (current) use of insulin; Z88.0 Allergy status to penicillin; Z88.8 Allergy status to other drugs, medicaments and biological substances; Z88.6 Allergy status to analgesic agent

== ENCOUNTER 2019-10-06 14:20 | Emergency (ER) | payer MEDICAID ==
[~2019-10-06 14:20] MED LIST changes: +PERCOCET 7.5-31 EAC1 PO
== END 2019-10-06 15:17 | disposition left against medical advice (07) ==
LOC: M.ERS 14:20
DX: Z53.21 Procedure and treatment not carried out due to patient leaving prior to being seen by health care provider (principal)

== ENCOUNTER 2019-10-15 12:41 | Emergency (ER) | payer MEDICAID ==
[~2019-10-15] VITALS: Ht 182.9 cm; Wt 93.9 kg
[2019-10-15 14:30] LABS: URINE BILIRUBIN NEGATIVE (Negative); URINE BLOOD 3+ (Negative); URINE CLARITY CLEAR; URINE COLOR YELLOW; URINE GLUCOSE-RANDOM 1+ (Negative); URINE KETONES NEGATIVE (Negative); URINE LEUKOCYTES-REFLEX 1+ (Negative); URINE NITRITE-REFLEX NEGATIVE (Negative); URINE PROTEIN 2+ (Negative); URINE SPECIFIC GRAVITY 1.025 (1.005-1.030); URINE UROBILINOGEN 0.2 E.U./dl (0.2-1.0)
[2019-10-15] MEDS ORDERED: BACTRIM DS TAB1 EACH PO (14:32)
[2019-10-15] MEDS ORDERED: PYRIDIUM200 MG PO (14:32)
[2019-10-15 14:40] LABS: SQUAMOUS 4-10 Moderate /LPF (0-3)
[2019-10-15 14:41] LABS: URINE RBC >20 Many /HPF (0-2); URINE WBC-REFLEX 6-15 Few /HPF (0-5)
[2019-10-15 14:42] LABS: BACTERIA-REFLEX >30 Many /HPF (None Seen); MUCUS 0-3 Light strn/LPF (None Seen)
[2019-10-15 14:43] LABS: CASTS None Seen /LPF (None Seen); CRYSTALS None Seen /LPF (None Seen)
[2019-10-15 14:57] VITALS: BP 131/71
== END 2019-10-15 14:58 | disposition home or self-care (01) ==
LOC: M.ERS 12:41
PROVIDERS: Personal Emergency Response Attendant
DX: N32.89 Other specified disorders of bladder (principal); E11.9 Type 2 diabetes mellitus without complications; I10 Essential (primary) hypertension; F17.210 Nicotine dependence, cigarettes, uncomplicated; Z88.0 Allergy status to penicillin; Z88.6 Allergy status to analgesic agent; Z88.8 Allergy status to other drugs, medicaments and biological substances; Z87.442 Personal history of urinary calculi; Z86.19 Personal history of other infectious and parasitic diseases

== ENCOUNTER 2019-10-22 21:18 | Emergency (ER) | payer MEDICAID ==
[~2019-10-22] VITALS: Ht 182.9 cm; Wt 93.9 kg
[~2019-10-22 21:18] MED LIST changes: +PYRIDIUM200 MG PO
[2019-10-22 21:56] LABS: ABSOLUTE BASOPHILS 0.1 thou/uL (0.0-0.2); ABSOLUTE EOSINOPHILS 0.3 thou/uL (0.0-0.7); ABSOLUTE LYMPHOCYTES 1.8 thou/uL (0.8-5.3); ABSOLUTE MONOCYTES 0.7 thou/uL (0.0-1.2); ABSOLUTE NEUTROPHILS 4.7 thou/uL (1.6-8.1); BASOPHILS 1.4 %; HEMATOCRIT 40.8 % (42.0-52.0); HEMOGLOBIN 14.1 gm/dL (14.0-18.0); LYMPHOCYTES 24.3 %; MCH 32.5 pg (26.0-34.0); MCHC 34.6 g/dL (28.0-37.0); MONOCYTES 9.3 %; MPV 7.1 fl. (7.2-11.1); NUCLEATED RBCS 0 /100WBC; PLATELET COUNT* 324 thou/uL (150-400); RBC 4.33 mil/uL (4.50-6.00); RDW-CV 13.6 % (10.5-14.5); WBC 7.6 thou/uL (4.0-11.0)
[2019-10-22 21:57] LABS: URINE BILIRUBIN NEGATIVE (Negative); URINE BLOOD 3+ (Negative); URINE CLARITY CLEAR; URINE COLOR STRAW; URINE GLUCOSE-RANDOM 3+ (Negative); URINE KETONES NEGATIVE (Negative); URINE LEUKOCYTES-REFLEX NEGATIVE (Negative); URINE NITRITE-REFLEX NEGATIVE (Negative); URINE PROTEIN NEGATIVE (Negative); URINE SPECIFIC GRAVITY <= 1.005 (1.005-1.030); URINE UROBILINOGEN 0.2 E.U./dl (0.2-1.0)
[2019-10-22 22:07] LABS: CALCIUM 8.9 mg/dL (8.5-10.1); CREATININE 1.1 mg/dL (0.6-1.3)
[2019-10-22 22:08] LABS: MUCUS None Seen strn/LPF (None Seen); SQUAMOUS 0-3 Few /LPF (0-3); URINE RBC >20 Many /HPF (0-2)
[2019-10-22 22:09] LABS: BACTERIA-REFLEX None Seen /HPF (None Seen); CASTS None Seen /LPF (None Seen); CRYSTALS None Seen /LPF (None Seen); URINE WBC-REFLEX 0-5 Rare /HPF (0-5)
[2019-10-22 22:12] LABS: ALBUMIN 3.6 g/dL (3.4-5.0); TOTAL BILIRUBIN 0.4 mg/dL (<0.1-1.0); TOTAL PROTEIN 7.5 g/dL (6.4-8.2)
[2019-10-23] MEDS ORDERED: HYDROCODON-ACE1 EAC8 PO (03:24)
[2019-10-23 03:52] VITALS: BP 110/64
== END 2019-10-23 03:52 | disposition home or self-care (01) ==
LOC: M.ERS 21:18
PROVIDERS: Emergency Medicine
DX: R31.9 Hematuria, unspecified (principal); N50.812 Left testicular pain; R10.30 Lower abdominal pain, unspecified

== ENCOUNTER 2019-12-19 14:50 | Emergency (ER) | payer MEDICAID ==
[~2019-12-19] VITALS: Ht 182.9 cm; Wt 93.9 kg
[~2019-12-19 14:50] MED LIST changes: +ZOFRAN 4 MG ORAL4 MG PO
[2019-12-19 15:35] LABS: URINE BILIRUBIN NEGATIVE (Negative); URINE BLOOD 3+ (Negative); URINE CLARITY SL CLOUDY; URINE COLOR YELLOW; URINE GLUCOSE-RANDOM 3+ (Negative); URINE KETONES NEGATIVE (Negative); URINE LEUKOCYTES-REFLEX NEGATIVE (Negative); URINE NITRITE-REFLEX NEGATIVE (Negative); URINE PROTEIN 1+ (Negative); URINE UROBILINOGEN 0.2 E.U./dl (0.2-1.0)
[2019-12-19 15:41] LABS: ABSOLUTE BASOPHILS 0.1 thou/uL (0.0-0.2); ABSOLUTE EOSINOPHILS 0.3 thou/uL (0.0-0.7); ABSOLUTE LYMPHOCYTES 1.7 thou/uL (0.8-5.3); ABSOLUTE MONOCYTES 0.8 thou/uL (0.0-1.2); ABSOLUTE NEUTROPHILS 6.1 thou/uL (1.6-8.1); BASOPHILS 1.1 %; EOSINOPHILS 3.1 %; HEMATOCRIT 44.3 % (42.0-52.0); HEMOGLOBIN 15.7 gm/dL (14.0-18.0); LYMPHOCYTES 19.2 %; MCH 32.9 pg (26.0-34.0); MCHC 35.4 g/dL (28.0-37.0); MONOCYTES 9.1 %; MPV 7.8 fl. (7.2-11.1); NUCLEATED RBCS 0 /100WBC; PLATELET COUNT* 347 thou/uL (150-400); POLYS 67.5 %; RBC 4.76 mil/uL (4.50-6.00); RDW-CV 13.7 % (10.5-14.5); WBC 9.1 thou/uL (4.0-11.0)
[2019-12-19 15:42] LABS: CRYSTALS None Seen /LPF (None Seen); MUCUS None Seen strn/LPF (None Seen); SQUAMOUS 4-10 Moderate /LPF (0-3); URINE WBC-REFLEX 0-5 Rare /HPF (0-5)
[2019-12-19 15:43] LABS: CASTS None Seen /LPF (None Seen)
[2019-12-19 15:45] LABS: BACTERIA-REFLEX None Seen /HPF (None Seen); URINE RBC >20 Many /HPF (0-2)
[2019-12-19 15:48] LABS: CALCIUM 8.8 mg/dL (8.5-10.1); CREATININE 0.9 mg/dL (0.6-1.3); POTASSIUM 4.2 mmol/L (3.5-5.1)
[2019-12-19 15:59] LABS: ALBUMIN 3.8 g/dL (3.4-5.0); TOTAL BILIRUBIN 0.7 mg/dL (<0.1-1.0)
[2019-12-19] MEDS ORDERED: NORCO 5-325 TA1 EAC1 PO (16:28)
[2019-12-19 16:48] VITALS: BP 125/89
--- NOTE | 2019-12-20 10:35 | EKG ---
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: : 1960 Requested By: Brie Johns Order Number: [id number] MD: Josh York Measurements Intervals [place] Rate: 87 P: 36 [place]: 169 QRS: -15 QRSD: 87 T: 35 QT: 361 QTc: 435 Interpretive Statements Sinus rhythm Borderline left axis deviation Low voltage, extremity leads Compared to ECG 08/27/2019 17:01:41 Ventricular premature complex(es) no longer present Electronically Signed On 12-20-2019 10:34:14 CDT by Josh York [email or web address] <ELECTRONICALLY SIGNED> By: Josh York MD, FAC 12/20/19 1034 1528 1528 Josh York MD, [facility] /EPI
== END 2019-12-19 16:49 | disposition home or self-care (01) ==
LOC: M.ERS 14:50
PROVIDERS: Nurse Practitioner
DX: M54.2 Cervicalgia (principal); E11.9 Type 2 diabetes mellitus without complications; G89.29 Other chronic pain; I10 Essential (primary) hypertension; F17.210 Nicotine dependence, cigarettes, uncomplicated; Z88.0 Allergy status to penicillin; Z88.6 Allergy status to analgesic agent; Z88.8 Allergy status to other drugs, medicaments and biological substances; Z87.442 Personal history of urinary calculi; Z86.19 Personal history of other infectious and parasitic diseases; Z86.711 Personal history of pulmonary embolism; Z79.4 Long term (current) use of insulin; W10.8XXA Fall (on) (from) other stairs and steps, initial encounter; Y93.89 Activity, other specified; Y92.89 Other specified places as the place of occurrence of the external cause; Y99.8 Other external cause status

== ENCOUNTER 2019-12-25 19:07 | Emergency (ER) | payer MEDICAID ==
[~2019-12-25] VITALS: Ht 182.9 cm; Wt 93.9 kg
[2019-12-25] MEDS ORDERED: ZOLOFT100 MG PO (19:24)
[2019-12-25 19:39] LABS: URINE BILIRUBIN NEGATIVE (Negative); URINE BLOOD 3+ (Negative); URINE CLARITY CLOUDY; URINE COLOR YELLOW; URINE GLUCOSE-RANDOM 3+ (Negative); URINE KETONES NEGATIVE (Negative); URINE LEUKOCYTES-REFLEX TRACE (Negative); URINE NITRITE-REFLEX NEGATIVE (Negative); URINE PROTEIN 2+ (Negative); URINE UROBILINOGEN 0.2 E.U./dl (0.2-1.0)
[2019-12-25 19:45] LABS: URINE RBC >20 Many /HPF (0-2)
[2019-12-25 19:46] LABS: HYALINE CASTS 0-3 Few /LPF (None Seen); URINE WBC-REFLEX >25 Many /HPF (0-5)
[2019-12-25 19:47] LABS: BACTERIA-REFLEX 1-9 Few /HPF (None Seen); CRYSTALS None Seen /LPF (None Seen); MUCUS None Seen strn/LPF (None Seen); SQUAMOUS 0-3 Few /LPF (0-3)
[2019-12-25 19:48] LABS: ABSOLUTE BASOPHILS 0.1 thou/uL (0.0-0.2); ABSOLUTE EOSINOPHILS 0.3 thou/uL (0.0-0.7); ABSOLUTE LYMPHOCYTES 2.2 thou/uL (0.8-5.3); ABSOLUTE MONOCYTES 0.9 thou/uL (0.0-1.2); ABSOLUTE NEUTROPHILS 7.7 thou/uL (1.6-8.1); BASOPHILS 1.1 %; EOSINOPHILS 2.4 %; HEMATOCRIT 44.4 % (42.0-52.0); HEMOGLOBIN 15.6 gm/dL (14.0-18.0); MCH 32.7 pg (26.0-34.0); MCHC 35.2 g/dL (28.0-37.0); MCV 92.9 fL (80.0-100.0); MPV 6.9 fl. (7.2-11.1); NUCLEATED RBCS 0 /100WBC; PLATELET COUNT* 359 thou/uL (150-400); POLYS 68.5 %; RBC 4.78 mil/uL (4.50-6.00); RDW-CV 13.7 % (10.5-14.5); WBC 11.2 thou/uL (4.0-11.0)
[2019-12-25 20:00] LABS: CALCIUM 8.8 mg/dL (8.5-10.1); CREATININE 1.3 mg/dL (0.6-1.3); POTASSIUM 4.2 mmol/L (3.5-5.1)
[2019-12-25] MEDS ORDERED: PHENAZOPYRIDIN200 M2 PO (20:45)
[2019-12-25] MEDS ORDERED: NORCO 5-325 TA1 EAC1 PO (20:45)
[2019-12-25] MEDS ORDERED: BACTRIM DS TAB1 EAC1 PO (20:45)
[2019-12-25 20:57] VITALS: BP 148/69
== END 2019-12-25 20:58 | disposition home or self-care (01) ==
LOC: M.ERS 19:07
PROVIDERS: Emergency Medicine Emergency Medical Services
DX: N39.0 Urinary tract infection, site not specified (principal); M25.571 Pain in right ankle and joints of right foot; M25.551 Pain in right hip; M54.2 Cervicalgia; E11.9 Type 2 diabetes mellitus without complications; G89.29 Other chronic pain; Z86.19 Personal history of other infectious and parasitic diseases; Z87.442 Personal history of urinary calculi; Z79.4 Long term (current) use of insulin; Z88.0 Allergy status to penicillin; Z88.6 Allergy status to analgesic agent; Z88.8 Allergy status to other drugs, medicaments and biological substances

== ENCOUNTER 2020-01-09 05:40 | Emergency (ER) | payer MEDICAID ==
[~2020-01-09] VITALS: Ht 182.9 cm; Wt 93.9 kg
[~2020-01-09 05:40] MED LIST changes: +BACTRIM DS TAB1 EAC1 PO; +ZOLOFT100 MG PO
[2020-01-09 06:08] LABS: ABSOLUTE EOSINOPHILS 0.3 thou/uL (0.0-0.7); ABSOLUTE LYMPHOCYTES 2.4 thou/uL (0.8-5.3); ABSOLUTE MONOCYTES 0.7 thou/uL (0.0-1.2); BASOPHILS 0.2 %; EOSINOPHILS 3.8 %; HEMATOCRIT 42.9 % (42.0-52.0); HEMOGLOBIN 15.2 gm/dL (14.0-18.0); LYMPHOCYTES 32.1 %; MCH 32.9 pg (26.0-34.0); MCHC 35.4 g/dL (28.0-37.0); MONOCYTES 9.5 %; MPV 6.9 fl. (7.2-11.1); NUCLEATED RBCS 0 /100WBC; PLATELET COUNT* 316 thou/uL (150-400); POLYS 54.4 %; RBC 4.61 mil/uL (4.50-6.00); RDW-CV 13.8 % (10.5-14.5); WBC 7.4 thou/uL (4.0-11.0)
[2020-01-09 06:10] LABS: URINE BILIRUBIN NEGATIVE (Negative); URINE BLOOD 3+ (Negative); URINE CLARITY CLEAR; URINE COLOR YELLOW; URINE GLUCOSE-RANDOM 3+ (Negative); URINE KETONES NEGATIVE (Negative); URINE LEUKOCYTES-REFLEX NEGATIVE (Negative); URINE NITRITE-REFLEX NEGATIVE (Negative); URINE PROTEIN NEGATIVE (Negative); URINE SPECIFIC GRAVITY 1.015 (1.005-1.030); URINE UROBILINOGEN 0.2 E.U./dl (0.2-1.0)
[2020-01-09 06:21] LABS: CALCIUM 8.2 mg/dL (8.5-10.1); CREATININE 1.4 mg/dL (0.6-1.3)
[2020-01-09 06:24] LABS: SQUAMOUS >10 Many /LPF (0-3); URINE RBC >20 Many /HPF (0-2); URINE WBC-REFLEX 0-5 Rare /HPF (0-5)
[2020-01-09 06:25] LABS: BACTERIA-REFLEX 1-9 Few /HPF (None Seen); CASTS None Seen /LPF (None Seen); CRYSTALS None Seen /LPF (None Seen); MUCUS None Seen strn/LPF (None Seen)
[2020-01-09] MEDS ORDERED: BACTRIM DS TAB1 EAC1 PO (08:27)
[2020-01-09] MEDS ORDERED: NORCO 5-325 TA1 EAC1 PO (08:27)
[2020-01-09] MEDS ORDERED: PYRIDIUM200 MG PO (08:27)
[2020-01-09 08:55] VITALS: BP 142/78
== END 2020-01-09 08:58 | disposition home or self-care (01) ==
LOC: M.ERS 05:40
PROVIDERS: Emergency Medicine
DX: N32.89 Other specified disorders of bladder (principal); R31.9 Hematuria, unspecified; G89.29 Other chronic pain; E11.9 Type 2 diabetes mellitus without complications; I10 Essential (primary) hypertension; F17.210 Nicotine dependence, cigarettes, uncomplicated; Z86.19 Personal history of other infectious and parasitic diseases; Z85.51 Personal history of malignant neoplasm of bladder; Z79.4 Long term (current) use of insulin; Z88.0 Allergy status to penicillin; Z88.6 Allergy status to analgesic agent; Z88.8 Allergy status to other drugs, medicaments and biological substances; Z87.442 Personal history of urinary calculi

== ENCOUNTER 2020-01-16 03:08 | Emergency (ER) | payer MEDICAID ==
[~2020-01-16] VITALS: Ht 182.9 cm; Wt 93.9 kg
[2020-01-16 04:08] LABS: ABSOLUTE BASOPHILS 0.1 thou/uL (0.0-0.2); ABSOLUTE EOSINOPHILS 0.3 thou/uL (0.0-0.7); ABSOLUTE LYMPHOCYTES 1.8 thou/uL (0.8-5.3); ABSOLUTE MONOCYTES 0.7 thou/uL (0.0-1.2); ABSOLUTE NEUTROPHILS 4.6 thou/uL (1.6-8.1); BASOPHILS 1.2 %; EOSINOPHILS 3.9 %; HEMATOCRIT 43.3 % (42.0-52.0); HEMOGLOBIN 15.1 gm/dL (14.0-18.0); LYMPHOCYTES 23.8 %; MCH 32.3 pg (26.0-34.0); MCHC 34.8 g/dL (28.0-37.0); MONOCYTES 9.4 %; MPV 7.3 fl. (7.2-11.1); NUCLEATED RBCS 0 /100WBC; PLATELET COUNT* 353 thou/uL (150-400); POLYS 61.7 %; RBC 4.66 mil/uL (4.50-6.00); WBC 7.5 thou/uL (4.0-11.0)
[2020-01-16 04:16] LABS: CALCIUM 8.8 mg/dL (8.5-10.1); CREATININE 1.1 mg/dL (0.6-1.3); POTASSIUM 4.1 mmol/L (3.5-5.1)
[2020-01-16 05:36] VITALS: BP 147/86
== END 2020-01-16 05:36 | disposition home or self-care (01) ==
LOC: M.ERS 03:08
PROVIDERS: Emergency Medicine
DX: R10.30 Lower abdominal pain, unspecified (principal); I10 Essential (primary) hypertension; E11.9 Type 2 diabetes mellitus without complications; F17.210 Nicotine dependence, cigarettes, uncomplicated; Z88.0 Allergy status to penicillin; Z88.8 Allergy status to other drugs, medicaments and biological substances; Z88.6 Allergy status to analgesic agent; Z86.711 Personal history of pulmonary embolism; Z86.19 Personal history of other infectious and parasitic diseases; Z87.442 Personal history of urinary calculi; Z85.51 Personal history of malignant neoplasm of bladder; Z79.4 Long term (current) use of insulin; W10.8XXA Fall (on) (from) other stairs and steps, initial encounter; Y93.89 Activity, other specified; Y92.89 Other specified places as the place of occurrence of the external cause; Y99.8 Other external cause status

== ENCOUNTER 2020-01-29 23:05 | Emergency (ER) | payer MEDICAID ==
[~2020-01-29] VITALS: Ht 182.9 cm; Wt 96.8 kg
[2020-01-29] MEDS ORDERED: NORCO 5-325 TA1 EAC1 PO (23:33)
[2020-01-29] MEDS ORDERED: FLEXERIL PO (23:33)
[2020-01-29 23:35] LABS: ABSOLUTE BASOPHILS 0.1 thou/uL (0.0-0.2); ABSOLUTE EOSINOPHILS 0.3 thou/uL (0.0-0.7); ABSOLUTE LYMPHOCYTES 1.4 thou/uL (0.8-5.3); ABSOLUTE MONOCYTES 0.6 thou/uL (0.0-1.2); ABSOLUTE NEUTROPHILS 6.2 thou/uL (1.6-8.1); BASOPHILS 1.2 %; EOSINOPHILS 3.6 %; HEMATOCRIT 40.6 % (42.0-52.0); LYMPHOCYTES 16.2 %; MCH 32.3 pg (26.0-34.0); MCHC 34.6 g/dL (28.0-37.0); MCV 93.4 fL (80.0-100.0); MONOCYTES 7.5 %; MPV 7.3 fl. (7.2-11.1); NUCLEATED RBCS 0 /100WBC; PLATELET COUNT* 283 thou/uL (150-400); POLYS 71.5 %; RBC 4.35 mil/uL (4.50-6.00); RDW-CV 13.9 % (10.5-14.5); WBC 8.6 thou/uL (4.0-11.0)
[2020-01-29 23:42] LABS: CALCIUM 8.5 mg/dL (8.5-10.1); CREATININE 1.1 mg/dL (0.6-1.3); POTASSIUM 4.3 mmol/L (3.5-5.1)
[2020-01-29 23:46] LABS: ALBUMIN 3.4 g/dL (3.4-5.0); TOTAL BILIRUBIN 0.5 mg/dL (<0.1-1.0); TOTAL PROTEIN 7.1 g/dL (6.4-8.2)
[2020-01-30 01:22] VITALS: BP 118/64
== END 2020-01-30 01:22 | disposition home or self-care (01) ==
LOC: M.ERS 23:05
PROVIDERS: Family Medicine
DX: S39.012A Strain of muscle, fascia and tendon of lower back, initial encounter (principal); S00.03XA Contusion of scalp, initial encounter; I10 Essential (primary) hypertension; E11.9 Type 2 diabetes mellitus without complications; G89.29 Other chronic pain; F41.9 Anxiety disorder, unspecified; F31.9 Bipolar disorder, unspecified; F17.210 Nicotine dependence, cigarettes, uncomplicated; Z87.442 Personal history of urinary calculi; Z85.51 Personal history of malignant neoplasm of bladder; Z86.711 Personal history of pulmonary embolism; Z88.0 Allergy status to penicillin; Z88.6 Allergy status to analgesic agent; Z88.8 Allergy status to other drugs, medicaments and biological substances; W18.39XA Other fall on same level, initial encounter; Y93.89 Activity, other specified; Y92.511 Restaurant or cafe as the place of occurrence of the external cause; Y99.8 Other external cause status

== ENCOUNTER 2020-02-13 11:13 | Inpatient (IN) | payer MEDICAID ==
[~2020-02-13] VITALS: Ht 182.9 cm; Wt 90.7 kg
[2020-02-13 11:21] VITALS: BP 131/67
[2020-02-13 11:43] LABS: ABSOLUTE BASOPHILS 0.1 thou/uL (0.0-0.2); ABSOLUTE EOSINOPHILS 0.3 thou/uL (0.0-0.7); ABSOLUTE LYMPHOCYTES 2.7 thou/uL (0.8-5.3); ABSOLUTE MONOCYTES 0.7 thou/uL (0.0-1.2); ABSOLUTE NEUTROPHILS 4.2 thou/uL (1.6-8.1); BASOPHILS 1.3 %; EOSINOPHILS 3.7 %; HEMATOCRIT 43.3 % (42.0-52.0); HEMOGLOBIN 15.2 gm/dL (14.0-18.0); LYMPHOCYTES 34.2 %; MCH 32.8 pg (26.0-34.0); MCV 93.6 fL (80.0-100.0); MONOCYTES 8.3 %; MPV 7.2 fl. (7.2-11.1); NUCLEATED RBCS 0 /100WBC; PLATELET COUNT* 337 thou/uL (150-400); POLYS 52.5 %; RBC 4.62 mil/uL (4.50-6.00); RDW-CV 13.8 % (10.5-14.5)
[2020-02-13 11:52] LABS: APTT 24.3 Seconds (25.0-31.3); INR 0.9; PROTIME 9.4 Seconds (9.20-11.50)
[2020-02-13 11:53] LABS: CALCIUM 9.1 mg/dL (8.5-10.1); CREATININE 1.3 mg/dL (0.6-1.3); POTASSIUM 4.4 mmol/L (3.5-5.1)
[2020-02-13 12:03] LABS: ALBUMIN 4.1 g/dL (3.4-5.0); TOTAL BILIRUBIN 0.7 mg/dL (<0.1-1.0); TOTAL PROTEIN 8.1 g/dL (6.4-8.2)
[2020-02-13 14:25] VITALS: BP 104/59
--- NOTE | 2020-02-13 14:33 | EKG ---
[place] [address] ELECTROCARDIOGRAM REPORT Name: STOCKTONJAZZY BISHOP Room: [place] [address] ADM IN ..#: [id number] Admission: 02/13/20 Attend Phys: Dank Matos, Discharge: Date of : 58 Date of Service: 02/13/20 1227 Report #: [id number] THIS REPORT FOR: //name// [facility] ED Test Date: 2020-02-13 Test Time: 12:27:04 Pat Name: JAZZY STOCKTON Department: Room: [facility] Gender: M Track Patrol: MS : 1960 Requested By: Gilles Flor Order Number: [id number] MD: Salinas Abraham Measurements Intervals [place] Rate: 78 P: 31 UT: 169 QRS: -15 QRSD: 89 T: 39 QT: 366 QTc: 417 Interpretive Statements Sinus rhythm Borderline left axis deviation Low voltage, extremity leads Abnormal R-wave progression, late transition Compared to ECG 12/19/2019 15:28:41 No significant changes Electronically Signed On 02-13-2020 14:31:45 CDT by Salinas Abraham [email or web address] <ELECTRONICALLY SIGNED> By: Salinas Abraham MD, FACC 02/13/20 1431 1227 1227 Salinas Abraham MD, FACC /EPI
[2020-02-13 15:28] VITALS: BP 128/65
[2020-02-13] MEDS ORDERED: FLEXERIL PO (15:30)
[2020-02-13 20:00] VITALS: BP 99/55
[2020-02-14 00:30] VITALS: BP 105/66
[2020-02-14 05:45] LABS: ABSOLUTE BASOPHILS 0.1 thou/uL (0.0-0.2); ABSOLUTE EOSINOPHILS 0.4 thou/uL (0.0-0.7); ABSOLUTE LYMPHOCYTES 1.9 thou/uL (0.8-5.3); ABSOLUTE MONOCYTES 0.5 thou/uL (0.0-1.2); ABSOLUTE NEUTROPHILS 2.6 thou/uL (1.6-8.1); BASOPHILS 2.1 %; EOSINOPHILS 6.6 %; HEMATOCRIT 40.2 % (42.0-52.0); LYMPHOCYTES 34.1 %; MCH 32.5 pg (26.0-34.0); MCHC 34.8 g/dL (28.0-37.0); MCV 93.5 fL (80.0-100.0); MONOCYTES 9.4 %; MPV 7.2 fl. (7.2-11.1); NUCLEATED RBCS 0 /100WBC; PLATELET COUNT* 286 thou/uL (150-400); POLYS 47.8 %; RDW-CV 13.7 % (10.5-14.5); WBC 5.5 thou/uL (4.0-11.0)
[2020-02-14 05:56] LABS: CALCIUM 7.8 mg/dL (8.5-10.1)
[2020-02-14 10:20] VITALS: BP 110/47
[2020-02-14 15:00] VITALS: BP 95/51
[2020-02-14 21:00] VITALS: BP 102/51
[2020-02-15 02:11] LABS: GLYCOHEMOGLOBIN (HGB A1C) 11.1 % (4.8-5.6)
[2020-02-15 05:26] LABS: ABSOLUTE BASOPHILS 0.1 thou/uL (0.0-0.2); ABSOLUTE EOSINOPHILS 0.3 thou/uL (0.0-0.7); ABSOLUTE LYMPHOCYTES 1.9 thou/uL (0.8-5.3); ABSOLUTE MONOCYTES 0.6 thou/uL (0.0-1.2); ABSOLUTE NEUTROPHILS 3.2 thou/uL (1.6-8.1); BASOPHILS 1.3 %; EOSINOPHILS 5.5 %; HEMATOCRIT 38.9 % (42.0-52.0); HEMOGLOBIN 13.8 gm/dL (14.0-18.0); LYMPHOCYTES 31.4 %; MCH 33.2 pg (26.0-34.0); MCHC 35.4 g/dL (28.0-37.0); MCV 93.7 fL (80.0-100.0); MONOCYTES 9.4 %; MPV 7.3 fl. (7.2-11.1); NUCLEATED RBCS 0 /100WBC; PLATELET COUNT* 281 thou/uL (150-400); POLYS 52.4 %; RBC 4.15 mil/uL (4.50-6.00); RDW-CV 13.7 % (10.5-14.5); WBC 6.1 thou/uL (4.0-11.0)
[2020-02-15 06:31] LABS: ALBUMIN 3.1 g/dL (3.4-5.0); CALCIUM 7.3 mg/dL (8.5-10.1); CREATININE 0.9 mg/dL (0.6-1.3); POTASSIUM 3.8 mmol/L (3.5-5.1); TOTAL BILIRUBIN 0.3 mg/dL (<0.1-1.0); TOTAL PROTEIN 6.5 g/dL (6.4-8.2)
[2020-02-15 08:30] VITALS: BP 115/61
[2020-02-15 17:00] VITALS: BP 122/78
[2020-02-15 19:52] VITALS: BP 122/48
[2020-02-16 09:44] VITALS: BP 99/72
[2020-02-16] MEDS ORDERED: HYDROCODON-ACE1 EAC7 PO (11:04)
[2020-02-16] MEDS ORDERED: KEFLEX500 M1 PO ×2 (11:04→11:13)
[2020-02-16 12:55] VITALS: BP 99/72
[2020-02-16 13:42] VITALS: BP 99/72
--- NOTE | 2020-02-17 07:49 | CON ---
[address] [address] CONSULTATION Name: JAZZY STOCKTON Room: [address] IN ..#: [id number] Admission: 02/13/20 Attend Phys: Dank Matos MD Discharge: 02/16/20 Date of : 58 Report #: [id number] THIS REPORT FOR: //name// cc: [facility] physician unknown [facility] physician unknown ~ THIS REPORT FOR: //name// CC: Dank Matos [facility] DATE OF SERVICE: 02/14/2020 INFECTIOUS DISEASE CONSULTATION ATTENDING PHYSICIAN: Dank Matos MD REASON FOR EVALUATION: Pulmonary nodule, concern about possible disseminated BCG. HISTORY OF PRESENT ILLNESS: Chart reviewed, patient examined. This is a 59-year-old with known history of bladder cancer, who underwent treatment initially with surgical and then had installation for 6 consecutive weeks. He was not sure, he speculate it might be a BCG. He says he had no chemotherapy, initial diagnosis in 08/2019, treatment extended into the first part of the year 2019. He noted onset the day of admission with bit of a cough, some dyspnea, one episode of hemoptysis. Due to concerns, he was evaluated and felt to have changes on his CT including right upper lobe mass, was not apparent 11/25/2019; also pleural base nodule, right middle lobe; new ground glass opacities as well bilaterally. Denies any fevers or chills. He states his appetite has generally been good. His weight has been around 200 pounds. Does admit to some peripheral neuropathy, it is fairly rapidly progressive involving the lower extremities. He is lucid. Denies any gastrointestinal-related complaints. ALLERGIES: PENICILLINS, TRAMADOL, PROPOXYPHENE, KETOROLAC. CURRENT MEDICATIONS: Include sertraline, ceftriaxone, pantoprazole, albuterol, hydrocodone, p.r.n. analgesics and antiemetics. He is on azithromycin as well. PAST MEDICAL HISTORY: As described above with bladder cancer, history of bipolar disorder, seizures, diabetes mellitus type 2, chronic back pain, lower extremity peripheral neuropathy, renal lithiasis, hypertension, depression, anxiety, history of hepatitis C. SOCIAL HISTORY: Former smoker. No ethanol. [place] [address] CONSULTATION Name: KATHJAZZYTR SANCHEZLAS Room: [address]#: [id number] Admission: 02/13/20 Attend Phys: Dank Matos MD Discharge: 02/16/20 Date of : 58 Report #: [id number] FAMILY HISTORY: Noncontributory. REVIEW OF SYSTEMS: Otherwise, unremarkable 10-point review of systems. PHYSICAL EXAMINATION: GENERAL: He is pleasant, alert and cooperative. He is in pbpi-hr-kgahtmsc distress, appears somewhat chronically ill, undernourished. VITAL SIGNS: Temperature 97.5, pulse 67, respirations 17, blood pressure 105/66. SKIN: Warm, dry, no rashes. HEENT: Normocephalic. Extraocular muscles intact. NECK: Supple. LUNGS: Few scattered crackles. Some diminishment at the bases. HEART: Regular. I do not appreciate a murmur. ABDOMEN: Mildly distended, soft, nontender. There is a ventral hernia noted. GENITOURINARY AND RECTAL: Deferred. LABORATORY DATA: Blood cultures are sterile thus far. Electrolytes: Sodium 132, potassium 4.0, chloride 99, bicarbonate is 28, anion gap of 5, BUN and creatinine 17 and 1.0, glucose of 198. Estimated GFR 76. CBC: White count of 5.5, rpgpkorwgv00.0, hematocrit 40.2, platelets of 286. Lactic acid 1.0. CTA chest as noted above. Liver functions otherwise unremarkable. Troponin less than 0.06. ASSESSMENT: Pulmonary nodule, likely has a degree of bilateral pneumonitis as well, may have multiple issues here. The idea of possible disseminated BCG is a consideration. We will try to collect sputum for AFB as well as regular bacteria until he can cough up something. Continue empiric antibacterial therapy, may ultimately need a bronchoscopy to exclude either a metastatic lesion or primary lung cancer. It is noted that he is a former smoker and actually electronic cigarettes as well. Remains somewhat tenuous. We will monitor expectantly. <ELECTRONICALLY SIGNED> By: Iggy Joseph MD 02/17/20 0749 1015 1203Iggy Joseph MD /nt
== END 2020-02-16 13:30 | disposition home or self-care (01) | DRG 180 ==
LOC: M.ERS 11:13 → M.ORTHSURG 13:19 → M.TBA-ER 13:19 → M.ORTHSURG 14:45
PROVIDERS: Family Medicine; ADMIT Internal Medicine
DX: C34.90 Malignant neoplasm of unspecified part of unspecified bronchus or lung (principal); J18.9 Pneumonia, unspecified organism; J44.0 Chronic obstructive pulmonary disease with (acute) lower respiratory infection; M54.5 Low back pain; G89.29 Other chronic pain; F31.9 Bipolar disorder, unspecified; I10 Essential (primary) hypertension; E11.9 Type 2 diabetes mellitus without complications; Z20.828 Contact with and (suspected) exposure to other viral communicable diseases; Z86.711 Personal history of pulmonary embolism; Z87.442 Personal history of urinary calculi; Z85.51 Personal history of malignant neoplasm of bladder; Z79.84 Long term (current) use of oral hypoglycemic drugs; Z79.4 Long term (current) use of insulin; Z79.899 Other long term (current) drug therapy; Z88.0 Allergy status to penicillin; Z88.8 Allergy status to other drugs, medicaments and biological substances; Z87.891 Personal history of nicotine dependence

== ENCOUNTER 2020-02-29 19:54 | Emergency (ER) | payer MEDICAID ==
[~2020-02-29] VITALS: Ht 182.9 cm; Wt 93.9 kg
[2020-02-29 20:27] LABS: ABSOLUTE BASOPHILS 0.1 thou/uL (0.0-0.2); ABSOLUTE EOSINOPHILS 0.4 thou/uL (0.0-0.7); ABSOLUTE LYMPHOCYTES 2.4 thou/uL (0.8-5.3); ABSOLUTE MONOCYTES 0.6 thou/uL (0.0-1.2); ABSOLUTE NEUTROPHILS 4.4 thou/uL (1.6-8.1); BASOPHILS 1.2 %; EOSINOPHILS 5.3 %; HEMATOCRIT 40.7 % (42.0-52.0); HEMOGLOBIN 14.4 gm/dL (14.0-18.0); LYMPHOCYTES 30.1 %; MCH 33.3 pg (26.0-34.0); MCHC 35.4 g/dL (28.0-37.0); MONOCYTES 7.7 %; MPV 7.3 fl. (7.2-11.1); NUCLEATED RBCS 0 /100WBC; PLATELET COUNT* 311 thou/uL (150-400); POLYS 55.7 %; RBC 4.33 mil/uL (4.50-6.00); RDW-CV 13.9 % (10.5-14.5); WBC 7.9 thou/uL (4.0-11.0)
[2020-02-29 20:35] LABS: CALCIUM 7.9 mg/dL (8.5-10.1); CREATININE 1.2 mg/dL (0.6-1.3); POTASSIUM 4.2 mmol/L (3.5-5.1)
[2020-02-29 20:38] LABS: INR 0.9; PROTIME 9.2 Seconds (9.20-11.50)
[2020-02-29 20:50] LABS: ALBUMIN 3.6 g/dL (3.4-5.0); MAGNESIUM 1.8 mg/dL (1.8-2.4); TOTAL BILIRUBIN 0.5 mg/dL (<0.1-1.0); TOTAL PROTEIN 7.7 g/dL (6.4-8.2)
[2020-02-29 21:27] VITALS: BP 116/70
--- NOTE | 2020-03-01 11:09 | EKG ---
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
== END 2020-02-29 21:28 | disposition home or self-care (01) ==
LOC: M.ERS 19:54
PROVIDERS: Emergency Medicine
DX: R05 Cough (principal); R07.81 Pleurodynia; I10 Essential (primary) hypertension; E11.9 Type 2 diabetes mellitus without complications; G89.29 Other chronic pain; F31.9 Bipolar disorder, unspecified; F41.9 Anxiety disorder, unspecified; F17.210 Nicotine dependence, cigarettes, uncomplicated; Z86.711 Personal history of pulmonary embolism; Z87.442 Personal history of urinary calculi; Z85.51 Personal history of malignant neoplasm of bladder; Z88.0 Allergy status to penicillin; Z88.6 Allergy status to analgesic agent; Z88.8 Allergy status to other drugs, medicaments and biological substances

== ENCOUNTER 2020-03-09 19:43 | Emergency (ER) | payer MEDICAID ==
[~2020-03-09] VITALS: Ht 182.9 cm; Wt 93.9 kg
[~2020-03-09 19:43] MED LIST changes: -ZOLOFT100 MG PO
[2020-03-09 20:48] LABS: URINE BILIRUBIN NEGATIVE (Negative); URINE BLOOD NEGATIVE (Negative); URINE CLARITY CLEAR; URINE COLOR YELLOW; URINE GLUCOSE-RANDOM 3+ (Negative); URINE KETONES NEGATIVE (Negative); URINE LEUKOCYTES-REFLEX NEGATIVE (Negative); URINE NITRITE-REFLEX NEGATIVE (Negative); URINE PROTEIN NEGATIVE (Negative); URINE SPECIFIC GRAVITY 1.015 (1.005-1.030); URINE UROBILINOGEN 0.2 E.U./dl (0.2-1.0)
[2020-03-09 21:00] LABS: ABSOLUTE BASOPHILS 0.1 thou/uL (0.0-0.2); ABSOLUTE EOSINOPHILS 0.3 thou/uL (0.0-0.7); ABSOLUTE MONOCYTES 0.5 thou/uL (0.0-1.2); BASOPHILS 1.1 %; EOSINOPHILS 4.3 %; HEMOGLOBIN 14.5 gm/dL (14.0-18.0); LYMPHOCYTES 29.2 %; MCH 32.6 pg (26.0-34.0); MCHC 34.6 g/dL (28.0-37.0); MCV 94.1 fL (80.0-100.0); MONOCYTES 7.8 %; MPV 7.2 fl. (7.2-11.1); NUCLEATED RBCS 0 /100WBC; PLATELET COUNT* 283 thou/uL (150-400); POLYS 57.6 %; RBC 4.46 mil/uL (4.50-6.00); RDW-CV 13.9 % (10.5-14.5)
[2020-03-09 21:08] LABS: CALCIUM 7.9 mg/dL (8.5-10.1)
[2020-03-09 21:19] LABS: ALBUMIN 3.4 g/dL (3.4-5.0); TOTAL BILIRUBIN 0.4 mg/dL (<0.1-1.0); TOTAL PROTEIN 7.4 g/dL (6.4-8.2)
[2020-03-09 21:57] VITALS: BP 106/63
--- NOTE | 2020-03-10 15:27 | EKG ---
[place] [address] ELECTROCARDIOGRAM REPORT Name: JAZZY STOCKTON Room: 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: : 1960 Requested By: Sandrine Green Order Number: [id number] MD: Salinas Abraham Measurements Intervals [place] Rate: 79 P: 71 [place]: 165 QRS: -21 QRSD: 87 T: 64 QT: 370 QTc: 425 Interpretive Statements Sinus rhythm Borderline left axis deviation Abnormal R-wave progression, late transition Compared to ECG 02/29/2020 20:10:32 No significant changes Electronically Signed On 03-10-2020 15:26:00 CDT by Salinas Abraham [email or web address] <ELECTRONICALLY SIGNED> By: Salinas Abraham MD, FACC 03/10/20 1526 51 51 Salinas Abraham MD, [facility] /EPI
== END 2020-03-09 21:58 | disposition home or self-care (01) ==
LOC: M.ERS 19:43
PROVIDERS: Emergency Medicine
DX: R39.89 Other symptoms and signs involving the genitourinary system (principal); I10 Essential (primary) hypertension; E11.9 Type 2 diabetes mellitus without complications; G89.29 Other chronic pain; F31.9 Bipolar disorder, unspecified; F41.9 Anxiety disorder, unspecified; F17.210 Nicotine dependence, cigarettes, uncomplicated; Z87.442 Personal history of urinary calculi; Z85.51 Personal history of malignant neoplasm of bladder; Z86.711 Personal history of pulmonary embolism; Z88.0 Allergy status to penicillin; Z88.6 Allergy status to analgesic agent; Z88.8 Allergy status to other drugs, medicaments and biological substances

== ENCOUNTER 2020-03-29 12:49 | Inpatient (IN) | payer MEDICAID ==
[~2020-03-29] VITALS: Ht 182.9 cm; Wt 95.3 kg
[2020-03-29 12:56] VITALS: BP 145/89
[2020-03-29 13:20] LABS: ABSOLUTE BASOPHILS 0.1 thou/uL (0.0-0.2); ABSOLUTE EOSINOPHILS 0.4 thou/uL (0.0-0.7); ABSOLUTE LYMPHOCYTES 1.8 thou/uL (0.8-5.3); ABSOLUTE MONOCYTES 0.8 thou/uL (0.0-1.2); ABSOLUTE NEUTROPHILS 3.6 thou/uL (1.6-8.1); BASOPHILS 1.4 %; EOSINOPHILS 5.6 %; HEMATOCRIT 40.5 % (42.0-52.0); HEMOGLOBIN 14.2 gm/dL (14.0-18.0); LYMPHOCYTES 26.8 %; MCH 32.9 pg (26.0-34.0); MCV 93.9 fL (80.0-100.0); MONOCYTES 11.5 %; MPV 7.1 fl. (7.2-11.1); NUCLEATED RBCS 0 /100WBC; PLATELET COUNT* 316 thou/uL (150-400); POLYS 54.7 %; RBC 4.31 mil/uL (4.50-6.00); RDW-CV 13.6 % (10.5-14.5); WBC 6.6 thou/uL (4.0-11.0)
[2020-03-29 13:33] LABS: APTT 23.6 Seconds (25.0-31.3); INR 0.9; PROTIME 9.3 Seconds (9.20-11.50)
[2020-03-29 13:42] LABS: CALCIUM 8.4 mg/dL (8.5-10.1); CREATININE 1.2 mg/dL (0.6-1.3); POTASSIUM 3.9 mmol/L (3.5-5.1)
[2020-03-29 13:46] LABS: ALBUMIN 3.7 g/dL (3.4-5.0); TOTAL BILIRUBIN 0.5 mg/dL (<0.1-1.0); TOTAL PROTEIN 7.3 g/dL (6.4-8.2)
[2020-03-29 18:15] VITALS: BP 111/72
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
[2020-03-29 19:30] VITALS: BP 108/62
[2020-03-29] MEDS ORDERED: IBUPROFEN 800800 M1 PO (20:09)
[2020-03-30] VITALS (7 sets, daily range): BP systolic 89–129; BP diastolic 45–79
--- NOTE | 2020-03-30 04:59 | NUR ---
PT SLEPT MOST OF SHIFT. ASSESSMNET DOCUMENTED. MEDS GIVEN PER E-MAR. IV PATENT, FLUIDS INFUSING. PAIN MEDS GIVEN PER E-MAR. IV PATENT. FALL PRECAUTIONS IN PLACE. WILL CONTINUE WITH PLAN OF CARE.
[2020-03-30 05:43] LABS: CHOLESTEROL 131 mg/dL (<200); HDL CHOLESTEROL 30 mg/dL (>40); LDL CHOLESTEROL 62 mg/dL (<100); TC:HDL 4.4 Ratio (Not establshd); TRIGLYCERIDE 198 mg/dL (<150); VLDL 40 mg/dL (<40)
[2020-03-30 05:48] LABS: SERUM ASSESSMENT CLEAR
--- NOTE | 2020-03-30 10:41 | EKG ---
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
--- NOTE | 2020-03-30 10:43 | EKG ---
[place] [address] ELECTROCARDIOGRAM REPORT Name: LOKI STOCKTONIN BISHOP Room: [address] ADM IN .R.#: [id number] Admission: 03/29/20 Attend Phys: Jesse Stevens Discharge: Date of : 58 Date of Service: 03/29/202102 Report #: [id number] THIS REPORT FOR: //name// [facility] Test Date: 2020-03-29 Test Time: 21:03:40 Pat Name: JAZZY STOCKTON Department: Room: [address] Gender: M Ldr Nurse: SLJ : 1960 Requested By: Jesse Stevens Order Number: [id number] MD: Josh York Measurements Intervals [place] Rate: 66 P: 49 FL: 175 QRS: 29 QRSD: 90 T: 46 QT: 420 QTc: 441 Interpretive Statements Sinus rhythm Low voltage, extremity leads Compared to ECG 03/29/2020 12:58:18 No significant changes Electronically Signed On 03-30-2020 10:43:01 CDT by Josh York [email or web address] <ELECTRONICALLY SIGNED> By: Josh York MD, [facility] 03/30/20 1043 02 02 Josh York MD, [facility] /EPI
--- NOTE | 2020-03-30 14:30 | NUR ---
Pt is A&O. Resides at home with his . Independent. Pt uses a walker for mobility. No home o2. No hx of HH or SNF. Goal is home at id. No needs anticipated. Following.
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
[2020-03-31] VITALS: BP 127/75
[2020-03-31 02:06] LABS: GLYCOHEMOGLOBIN (HGB A1C) 11.3 % (4.8-5.6)
[2020-03-31 04:00] VITALS: BP 100/50
--- NOTE | 2020-03-31 05:09 | NUR ---
PT SLEPT ON AND OFF THIS SHIFT. ASSESSMENT DOCUMENTED. MED GIVEN PER E-MAR. IV PATENT, FLUIDS INFUSING. PT REPORTED LOSS OF VISION IN HIS LEFT EYE AFTER RUBBING IT. PTS EYE IS RED, SWOLLEN AND WATERING. NIH DOCUMENTED, DR NOTIFIED, ORDERS RECIEVED. PT STATES HE DOES HAVE SOME VISION BACK IN HIS EYE, IT IS JUST BLURRY. PT STATES HE HAD A SIMMILAR EPISODE ABOUT A WEEK AGO WATCHING TELEVISION. FALL PRECAUTIONS IN PLACE. WILL CONTINUE WITH PLAN OF CARE.
[2020-03-31 08:00] VITALS: BP 150/70
[2020-03-31] MEDS ORDERED: HYDROCODON-ACE1 EAC7 PO ×2 (11:12→12:50)
[2020-03-31] MEDS ORDERED: KEFLEX500 M1 PO ×2 (11:12→12:51)
[2020-03-31] MEDS ORDERED: ASPIR 8181 MG PO (11:12)
[2020-03-31 12:00] VITALS: BP 127/64
[2020-03-31 12:19] VITALS: BP 127/64
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
--- NOTE | 2020-04-09 17:53 | CON ---
[address] [address] CONSULTATION Name: JAZZY STOCKTON Room: [address] IN .R.#: [id number] Admission: 03/29/20 Attend Phys: Amaya Ritter Discharge: 03/31/20 Date of : 58 Report #: [id number] THIS REPORT FOR: //name// cc: LUIS F Miner family physician/PCP LUIS F - Isidra family physician/PCP ~ THIS REPORT FOR: //name// CC: LUIS F physician/PCP Jesse Stevens DATE OF SERVICE: 03/30/2020 HISTORY OF PRESENT ILLNESS: This is a 59-year-old male patient who was evaluated by me for the possibility of stroke. When I saw this patient, the patient was feeling dizzy. He said he is not feeling well. He was sweating. The nurses were trying to check his blood sugar, blood pressure and pulse. Subsequently, it looks like the patient's blood sugar was very low, that is being corrected, so a limited evaluation is possible at this stage. He could not provide any history. He said he has a problem with the left hip, but he does not know how long it was going on. He was admitted with left-sided weakness. REVIEW OF SYSTEMS: Indicate that he has some history of shortness of breath. He has pain on the left side, I do not know where the pain is. In the Emergency Room, it looks like he is pointing towards the left hip area. He apparently had history of kidney stones, bladder problem, hepatitis C, depression, right hip surgery and some problem with the spine in the past that was his relevant 14-point review of system. PAST MEDICAL HISTORY: Positive for diabetes. FAMILY HISTORY: Negative for early age stroke. SOCIAL HISTORY: There is a history of smoking. PHYSICAL EXAMINATION: Indicates that he was pretty dizzy. He was still able to cooperate. The best I can tell, his strength is relatively preserved, but I have to do the examination some other time. I reviewed his vital signs, reviewed his records and reviewed his MRI. It does not appear to be showing any acute stroke. He has a carotid Doppler, which was unremarkable. His blood sugar is in the 30s. IMPRESSION: The patient's present symptom is because of his hypoglycemia. That preclude any good neurological evaluation. MRI does not show any active stroke and we will look at him tomorrow and leave [place] [address] CONSULTATION Name: KATHJAZZY BISHOP Room: [address]#: [id number] Admission: 03/29/20 Attend Phys: Amaya Ritter Discharge: 03/31/20 Date of : 58 Report #: [id number] upon how much interview, we can do. About 50 minutes of time was spent taking care of this patient and majority of that time was spent counseling and coordinating including reviewing his imaging studies and Radiology and multiple other testing. Thank you very much for this referral. <ELECTRONICALLY SIGNED> By: Jac Mcbride MD 04/09/20 1753 1515 2126Jac Mcbride MD /nt
--- NOTE | 2020-04-09 17:53 | EEG ---
[address] [address] EEG STUDY REPORT Name: JAZZY STOCKTON Room: [address] IN .R.#: [id number] Admission: 03/29/20 Attend Phys: Amaya Ritter Discharge: 03/31/20 Date of : 58 Report #: [id number] THIS REPORT FOR: //name// CC: LUIS F physician/PCP Jesse Stevens DATE OF SERVICE: 03/30/2020 This patient is being evaluated for the weakness. EEG was done by placing the electrode by standard 10-20 system of electrode placement. Both referential and sequential montages were used for recording. Background activity in this patient's EEG is about 10 Hz and 30 microvolts. A lot of artifact is present. The patient became drowsy and that is associated with bilateral slowing. Photic stimulation was not done. Throughout the record, no active epileptiform activity was noticed. IMPRESSION: A lot of artifact because of the patient being diaphoretic. Otherwise, the EEG looks unremarkable. Thank you very much for this referral. <ELECTRONICALLY SIGNED> By: Jac Mcbride MD 04/09/20 1753 15 Pnora Mcbride MD /nt
== END 2020-03-31 13:40 | disposition home or self-care (01) | DRG 563 ==
LOC: M.ERS 12:49 → M.TBA-ER 15:47 → M.2W 15:47
PROVIDERS: Nurse Practitioner Family; ADMIT Internal Medicine; ATTEND Internal Medicine
DX: S39.012A Strain of muscle, fascia and tendon of lower back, initial encounter (principal); E11.9 Type 2 diabetes mellitus without complications; G89.29 Other chronic pain; M54.9 Dorsalgia, unspecified; F32.9 Major depressive disorder, single episode, unspecified; F41.9 Anxiety disorder, unspecified; I10 Essential (primary) hypertension; F12.90 Cannabis use, unspecified, uncomplicated; E27.9 Disorder of adrenal gland, unspecified; E78.5 Hyperlipidemia, unspecified; R09.89 Other specified symptoms and signs involving the circulatory and respiratory systems; K52.89 Other specified noninfective gastroenteritis and colitis; R20.2 Paresthesia of skin; Z20.828 Contact with and (suspected) exposure to other viral communicable diseases; Z87.442 Personal history of urinary calculi; Z85.51 Personal history of malignant neoplasm of bladder; Z82.49 Family history of ischemic heart disease and other diseases of the circulatory system; Z87.891 Personal history of nicotine dependence; Z86.19 Personal history of other infectious and parasitic diseases; X58.XXXA Exposure to other specified factors, initial encounter; Y93.89 Activity, other specified; Y92.89 Other specified places as the place of occurrence of the external cause; Y99.8 Other external cause status

== ENCOUNTER 2020-04-23 06:28 | Emergency (ER) | payer MEDICAID ==
[~2020-04-23] VITALS: Ht 182.9 cm; Wt 93.9 kg
[~2020-04-23 06:28] MED LIST changes: +ASPIR 8181 MG PO
[2020-04-23 07:33] LABS: ABSOLUTE BASOPHILS 0.1 thou/uL (0.0-0.2); ABSOLUTE EOSINOPHILS 0.3 thou/uL (0.0-0.7); ABSOLUTE LYMPHOCYTES 1.7 thou/uL (0.8-5.3); ABSOLUTE MONOCYTES 0.5 thou/uL (0.0-1.2); ABSOLUTE NEUTROPHILS 3.8 thou/uL (1.6-8.1); BASOPHILS 0.9 %; EOSINOPHILS 4.2 %; HEMATOCRIT 41.3 % (42.0-52.0); HEMOGLOBIN 14.5 gm/dL (14.0-18.0); LYMPHOCYTES 27.3 %; MCH 33.4 pg (26.0-34.0); MCV 95.3 fL (80.0-100.0); MPV 6.9 fl. (7.2-11.1); NUCLEATED RBCS 0 /100WBC; PLATELET COUNT* 322 thou/uL (150-400); POLYS 59.6 %; RBC 4.34 mil/uL (4.50-6.00); RDW-CV 14.1 % (10.5-14.5); WBC 6.4 thou/uL (4.0-11.0)
[2020-04-23 07:42] LABS: CALCIUM 8.6 mg/dL (8.5-10.1); CREATININE 1.2 mg/dL (0.6-1.3); POTASSIUM 4.4 mmol/L (3.5-5.1)
[2020-04-23 07:47] LABS: ALBUMIN 3.6 g/dL (3.4-5.0); TOTAL BILIRUBIN 0.3 mg/dL (<0.1-1.0); TOTAL PROTEIN 7.5 g/dL (6.4-8.2)
[2020-04-23 07:49] LABS: URINE BILIRUBIN NEGATIVE (Negative); URINE BLOOD TRACE (Negative); URINE CLARITY CLEAR; URINE COLOR YELLOW; URINE GLUCOSE-RANDOM 2+ (Negative); URINE KETONES NEGATIVE (Negative); URINE LEUKOCYTES-REFLEX NEGATIVE (Negative); URINE NITRITE-REFLEX NEGATIVE (Negative); URINE PROTEIN NEGATIVE (Negative); URINE UROBILINOGEN 0.2 E.U./dl (0.2-1.0)
[2020-04-23] MEDS ORDERED: PERCOCET 5-3251 EACH PO (09:34)
[2020-04-23 09:42] VITALS: BP 135/77
--- NOTE | 2020-04-23 13:23 | EKG ---
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: : 1960 Requested By: Wandy Sepulveda Order Number: [id number] MD: Salinas Abraham Measurements Intervals [place] Rate: 63 P: 56 [place]: 171 QRS: 18 QRSD: 88 T: 47 QT: 423 QTc: 434 Interpretive Statements Sinus rhythm Borderline low voltage, extremity leads Baseline wander in lead(s) II,III,aVF,V3,V4,V5,V6 Compared to ECG 03/29/2020 21:03:40 No significant changes Electronically Signed On 04-23-2020 13:23:25 CDT by Salinas Abraham [email or web address] <ELECTRONICALLY SIGNED> By: Salinas Abraham MD, FACC 04/23/20 1323 1 1 Salinas Abraham MD, FACC /EPI
== END 2020-04-23 09:43 | disposition home or self-care (01) ==
LOC: M.ERS 06:28
PROVIDERS: Personal Emergency Response Attendant
DX: N32.89 Other specified disorders of bladder (principal); R10.84 Generalized abdominal pain; I10 Essential (primary) hypertension; E11.9 Type 2 diabetes mellitus without complications; G89.29 Other chronic pain; F31.9 Bipolar disorder, unspecified; F41.9 Anxiety disorder, unspecified; F17.210 Nicotine dependence, cigarettes, uncomplicated; Z86.711 Personal history of pulmonary embolism; Z87.442 Personal history of urinary calculi; Z85.51 Personal history of malignant neoplasm of bladder; Z88.0 Allergy status to penicillin; Z88.6 Allergy status to analgesic agent; Z88.8 Allergy status to other drugs, medicaments and biological substances

== ENCOUNTER 2020-05-09 15:00 | Emergency (ER) | payer MEDICAID ==
[~2020-05-09] VITALS: Ht 182.9 cm; Wt 93.9 kg
[~2020-05-09 15:00] MED LIST changes: +PERCOCET 5-3251 EACH PO
[2020-05-09 15:38] LABS: URINE BILIRUBIN NEGATIVE (Negative); URINE BLOOD 3+ (Negative); URINE CLARITY SL CLOUDY; URINE COLOR DARK YELLOW; URINE GLUCOSE-RANDOM 1+ (Negative); URINE KETONES NEGATIVE (Negative); URINE LEUKOCYTES-REFLEX NEGATIVE (Negative); URINE NITRITE-REFLEX NEGATIVE (Negative); URINE PROTEIN TRACE (Negative); URINE SPECIFIC GRAVITY 1.025 (1.005-1.030); URINE UROBILINOGEN 0.2 E.U./dl (0.2-1.0)
[2020-05-09 15:43] LABS: SQUAMOUS 4-10 Moderate /LPF (0-3); URINE WBC-REFLEX 6-15 Few /HPF (0-5)
[2020-05-09 15:44] LABS: CRYSTALS None Seen /LPF (None Seen); HYALINE CASTS 0-3 Few /LPF (None Seen); MUCUS 0-3 Light strn/LPF (None Seen); URINE RBC >20 Many /HPF (0-2)
[2020-05-09] MEDS ORDERED: KEFLEX500 M1 PO (16:02)
[2020-05-09 16:42] VITALS: BP 139/75
== END 2020-05-09 16:45 | disposition home or self-care (01) ==
LOC: M.ERS 15:00
PROVIDERS: Physician Assistant
DX: N39.0 Urinary tract infection, site not specified (principal); R31.9 Hematuria, unspecified; E11.9 Type 2 diabetes mellitus without complications; I10 Essential (primary) hypertension; G89.29 Other chronic pain; F17.210 Nicotine dependence, cigarettes, uncomplicated; Z88.8 Allergy status to other drugs, medicaments and biological substances; Z88.0 Allergy status to penicillin; Z88.6 Allergy status to analgesic agent; Z86.711 Personal history of pulmonary embolism; Z86.19 Personal history of other infectious and parasitic diseases; Z85.51 Personal history of malignant neoplasm of bladder; Z87.442 Personal history of urinary calculi; Z79.4 Long term (current) use of insulin

== ENCOUNTER 2020-07-08 01:28 | Emergency (ER) | payer MEDICAID ==
[~2020-07-08] VITALS: Ht 182.9 cm; Wt 93.9 kg
[2020-07-08 01:55] LABS: URINE BLOOD 3+ (Negative); URINE CLARITY CLEAR; URINE COLOR YELLOW; URINE GLUCOSE-RANDOM 1+ (Negative); URINE KETONES NEGATIVE (Negative); URINE LEUKOCYTES-REFLEX TRACE (Negative); URINE NITRITE-REFLEX NEGATIVE (Negative); URINE PROTEIN 2+ (Negative); URINE SPECIFIC GRAVITY >= 1.030 (1.005-1.030); URINE UROBILINOGEN 0.2 E.U./dl (0.2-1.0)
[2020-07-08] MEDS ORDERED: PERCOCET 5-3251 EACH PO (01:56)
[2020-07-08] MEDS ORDERED: CIPROFLOXACIN500 M1 PO (01:56)
[2020-07-08 02:01] LABS: ICTOTEST (BILI CONFIRMATORY) Negative (Negative); URINE BILIRUBIN 1+ (Negative)
[2020-07-08 02:11] LABS: CASTS None Seen /LPF (None Seen); CRYSTALS None Seen /LPF (None Seen); SQUAMOUS 0-3 Few /LPF (0-3); URINE RBC 0-2 Rare /HPF (0-2)
[2020-07-08 02:14] VITALS: BP 131/88
== END 2020-07-08 02:22 | disposition home or self-care (01) ==
LOC: M.ERS 01:28
PROVIDERS: Family Medicine
DX: R10.30 Lower abdominal pain, unspecified (principal); G89.29 Other chronic pain; R31.9 Hematuria, unspecified; I10 Essential (primary) hypertension; E11.9 Type 2 diabetes mellitus without complications; Z88.0 Allergy status to penicillin; Z88.6 Allergy status to analgesic agent; Z88.8 Allergy status to other drugs, medicaments and biological substances; Z86.19 Personal history of other infectious and parasitic diseases; Z87.442 Personal history of urinary calculi; Z85.51 Personal history of malignant neoplasm of bladder; Z79.4 Long term (current) use of insulin

== ENCOUNTER 2020-08-13 01:00 | Emergency (ER) | payer MEDICAID ==
[~2020-08-13] VITALS: Ht 182.9 cm; Wt 89.8 kg
[2020-08-13 01:38] VITALS: BP 138/72
== END 2020-08-13 01:39 | disposition left against medical advice (07) ==
LOC: M.ERS 01:00
DX: G89.29 Other chronic pain (principal); M54.9 Dorsalgia, unspecified; E11.9 Type 2 diabetes mellitus without complications; I10 Essential (primary) hypertension; F17.210 Nicotine dependence, cigarettes, uncomplicated; Z79.899 Other long term (current) drug therapy; Z88.0 Allergy status to penicillin; Z88.6 Allergy status to analgesic agent; Z88.8 Allergy status to other drugs, medicaments and biological substances; Z87.442 Personal history of urinary calculi

== ENCOUNTER 2021-04-01 11:17 | Emergency (ER) | payer MEDICAID ==
[~2021-04-01] VITALS: Ht 182.9 cm; Wt 89.8 kg
[2021-04-01 12:06] LABS: ABSOLUTE BASOPHILS 0.1 thou/uL (0.0-0.2); ABSOLUTE EOSINOPHILS 0.1 thou/uL (0.0-0.7); ABSOLUTE LYMPHOCYTES 1.9 thou/uL (0.8-5.3); ABSOLUTE MONOCYTES 0.8 thou/uL (0.0-1.2); ABSOLUTE NEUTROPHILS 5.6 thou/uL (1.6-8.1); BASOPHILS 0.8 %; EOSINOPHILS 1.4 %; HEMATOCRIT 38.1 % (42.0-52.0); HEMOGLOBIN 13.2 gm/dL (14.0-18.0); LYMPHOCYTES 22.5 %; MCH 32.2 pg (26.0-34.0); MCHC 34.6 g/dL (28.0-37.0); MONOCYTES 9.9 %; MPV 6.7 fl. (7.2-11.1); NUCLEATED RBCS 0 /100WBC; PLATELET COUNT* 305 thou/uL (150-400); POLYS 65.4 %; RBC 4.09 mil/uL (4.50-6.00); RDW-CV 14.3 % (10.5-14.5); WBC 8.5 thou/uL (4.0-11.0)
[2021-04-01 12:09] LABS: URINE BILIRUBIN NEGATIVE (Negative); URINE BLOOD 1+ (Negative); URINE CLARITY CLEAR; URINE COLOR YELLOW; URINE GLUCOSE-RANDOM TRACE (Negative); URINE KETONES NEGATIVE (Negative); URINE NITRITE-REFLEX NEGATIVE (Negative); URINE PROTEIN TRACE (Negative); URINE SPECIFIC GRAVITY 1.015 (1.005-1.030); URINE UROBILINOGEN 0.2 E.U./dl (0.2-1.0)
[2021-04-01 12:10] LABS: URINE LEUKOCYTES-REFLEX 3+ (Negative)
[2021-04-01 12:15] LABS: BACTERIA-REFLEX >30 Many /HPF (None Seen); CASTS None Seen /LPF (None Seen); CRYSTALS None Seen /LPF (None Seen); SQUAMOUS 0-3 Few /LPF (0-3); URINE RBC 0-2 Rare /HPF (0-2); URINE WBC-REFLEX 0-5 Rare /HPF (0-5)
[2021-04-01 12:18] LABS: CALCIUM 9.2 mg/dL (8.5-10.1); CREATININE 1.2 mg/dL (0.6-1.3); POTASSIUM 3.7 mmol/L (3.5-5.1)
[2021-04-01 12:23] LABS: ALBUMIN 3.8 g/dL (3.4-5.0); TOTAL BILIRUBIN 0.8 mg/dL (<0.1-1.0); TOTAL PROTEIN 7.6 g/dL (6.4-8.2)
[2021-04-01] MEDS ORDERED: BACTRIM DS TAB1 EAC1 PO (13:00)
[2021-04-01] MEDS ORDERED: HYDROCODON-ACE1 EAC7 PO (13:00)
[2021-04-01 13:39] VITALS: BP 140/68
== END 2021-04-01 13:41 | disposition home or self-care (01) ==
LOC: M.ERS 11:17
PROVIDERS: Emergency Medicine Emergency Medical Services
DX: N39.0 Urinary tract infection, site not specified (principal); E11.9 Type 2 diabetes mellitus without complications; R11.10 Vomiting, unspecified; G89.29 Other chronic pain; I10 Essential (primary) hypertension; F12.90 Cannabis use, unspecified, uncomplicated; F17.210 Nicotine dependence, cigarettes, uncomplicated; Z88.0 Allergy status to penicillin; Z88.6 Allergy status to analgesic agent; Z88.8 Allergy status to other drugs, medicaments and biological substances; Z79.899 Other long term (current) drug therapy; Z87.442 Personal history of urinary calculi

== ENCOUNTER 2021-05-02 15:35 | Emergency (ER) | payer MEDICAID ==
[~2021-05-02] VITALS: Ht 172.7 cm; Wt 90.7 kg
[2021-05-02 16:46] LABS: ABSOLUTE BASOPHILS 0.1 thou/uL (0.0-0.2); ABSOLUTE EOSINOPHILS 0.2 thou/uL (0.0-0.7); ABSOLUTE LYMPHOCYTES 1.5 thou/uL (0.8-5.3); ABSOLUTE MONOCYTES 0.6 thou/uL (0.0-1.2); ABSOLUTE NEUTROPHILS 3.5 thou/uL (1.6-8.1); BASOPHILS 1.1 %; EOSINOPHILS 3.4 %; HEMATOCRIT 37.4 % (42.0-52.0); LYMPHOCYTES 25.6 %; MCH 32.8 pg (26.0-34.0); MCHC 34.9 g/dL (28.0-37.0); MCV 94.1 fL (80.0-100.0); MONOCYTES 10.6 %; MPV 6.8 fl. (7.2-11.1); NUCLEATED RBCS 0 /100WBC; PLATELET COUNT* 309 thou/uL (150-400); POLYS 59.3 %; RBC 3.97 mil/uL (4.50-6.00); RDW-CV 15.1 % (10.5-14.5)
[2021-05-02 16:54] LABS: CALCIUM 8.3 mg/dL (8.5-10.1); CREATININE 1.5 mg/dL (0.6-1.3); POTASSIUM 4.2 mmol/L (3.5-5.1)
[2021-05-02 16:58] LABS: ALBUMIN 3.8 g/dL (3.4-5.0); TOTAL BILIRUBIN 0.6 mg/dL (<0.1-1.0); TOTAL PROTEIN 7.3 g/dL (6.4-8.2)
[2021-05-02] MEDS ORDERED: NORCO5 PO (18:43)
[2021-05-02 18:49] VITALS: BP 105/46
[2021-05-07] MEDS ORDERED: NORCO5 PO (11:35)
[2021-05-07] MEDS ORDERED: LEVAQUIN 500 M500 MG PO (11:35)
== END 2021-05-02 18:50 | disposition home or self-care (01) ==
LOC: M.ERS 15:35
PROVIDERS: Emergency Medicine
DX: R10.32 Left lower quadrant pain (principal); Z43.3 Encounter for attention to colostomy; I10 Essential (primary) hypertension; E11.9 Type 2 diabetes mellitus without complications; G89.29 Other chronic pain; F17.210 Nicotine dependence, cigarettes, uncomplicated; Z79.899 Other long term (current) drug therapy; Z88.0 Allergy status to penicillin; Z88.6 Allergy status to analgesic agent; Z87.442 Personal history of urinary calculi; Z85.51 Personal history of malignant neoplasm of bladder

== ENCOUNTER 2021-05-30 08:27 | Emergency (ER) | payer MEDICAID ==
[~2021-05-30] VITALS: Ht 182.9 cm; Wt 127.0 kg
[~2021-05-30 08:27] MED LIST changes: +LEVAQUIN 500 M500 MG PO; +MELOXICAM7.5 MG PO; +NORCO5 PO; +TIZANIDINE HCL4 M2 PO
[2021-05-30] MEDS ORDERED: PERCOCET PO (09:03)
[2021-05-30 09:10] VITALS: BP 135/78
== END 2021-05-30 09:11 | disposition home or self-care (01) ==
LOC: M.ERS 08:27
DX: G89.29 Other chronic pain (principal); M54.9 Dorsalgia, unspecified; I10 Essential (primary) hypertension; E11.9 Type 2 diabetes mellitus without complications; G40.909 Epilepsy, unspecified, not intractable, without status epilepticus; F32.9 Major depressive disorder, single episode, unspecified; F41.9 Anxiety disorder, unspecified; F17.210 Nicotine dependence, cigarettes, uncomplicated; Z98.890 Other specified postprocedural states; Z85.51 Personal history of malignant neoplasm of bladder; Z79.891 Long term (current) use of opiate analgesic; Z79.4 Long term (current) use of insulin; Z88.0 Allergy status to penicillin; Z88.8 Allergy status to other drugs, medicaments and biological substances

== ENCOUNTER 2021-06-06 07:43 | Emergency (ER) | payer MEDICAID ==
[~2021-06-06] VITALS: Ht 182.9 cm; Wt 94.3 kg
[~2021-06-06 07:43] MED LIST changes: +PERCOCET PO
[2021-06-06 07:52] VITALS: BP 137/72
[2021-06-06] MEDS ORDERED: PERCOCET PO (07:56)
== END 2021-06-06 08:06 | disposition home or self-care (01) ==
LOC: M.ERS 07:43
DX: G89.29 Other chronic pain (principal); R07.89 Other chest pain; Z76.0 Encounter for issue of repeat prescription; E11.9 Type 2 diabetes mellitus without complications; F32.9 Major depressive disorder, single episode, unspecified; F41.9 Anxiety disorder, unspecified; I10 Essential (primary) hypertension; F17.210 Nicotine dependence, cigarettes, uncomplicated; Z90.49 Acquired absence of other specified parts of digestive tract; Z79.4 Long term (current) use of insulin; Z79.899 Other long term (current) drug therapy; Z88.0 Allergy status to penicillin; Z88.5 Allergy status to narcotic agent

== ENCOUNTER 2021-06-28 16:27 | Emergency (ER) | payer MEDICAID ==
[~2021-06-28] VITALS: Ht 182.9 cm; Wt 94.3 kg
[2021-06-28] MEDS ORDERED: PERCOCET PO (16:49)
[2021-06-28 16:52] VITALS: BP 134/72
== END 2021-06-28 16:53 | disposition home or self-care (01) ==
LOC: M.ERS 16:27
DX: M25.551 Pain in right hip (principal); M25.561 Pain in right knee; G89.29 Other chronic pain; E11.9 Type 2 diabetes mellitus without complications; F32.9 Major depressive disorder, single episode, unspecified; F41.9 Anxiety disorder, unspecified; I10 Essential (primary) hypertension; F17.210 Nicotine dependence, cigarettes, uncomplicated; Z79.4 Long term (current) use of insulin; Z79.899 Other long term (current) drug therapy; Z88.0 Allergy status to penicillin; Z88.5 Allergy status to narcotic agent; Z88.6 Allergy status to analgesic agent

== ENCOUNTER 2021-07-15 11:44 | Emergency (ER) | payer MEDICAID ==
[~2021-07-15] VITALS: Ht 182.9 cm; Wt 94.3 kg
[2021-07-15 12:59] VITALS: BP 151/89
== END 2021-07-15 13:01 | disposition left against medical advice (07) ==
LOC: M.ERS 11:44
DX: R10.9 Unspecified abdominal pain (principal); Z53.21 Procedure and treatment not carried out due to patient leaving prior to being seen by health care provider

== ENCOUNTER 2021-07-17 09:04 | Emergency (ER) | payer MEDICAID ==
[~2021-07-17] VITALS: Ht 182.9 cm; Wt 94.3 kg
[2021-07-17 09:49] LABS: ABSOLUTE BASOPHILS 0.1 thou/uL (0.0-0.2); ABSOLUTE EOSINOPHILS 0.3 thou/uL (0.0-0.7); ABSOLUTE LYMPHOCYTES 1.4 thou/uL (0.8-5.3); ABSOLUTE MONOCYTES 0.6 thou/uL (0.0-1.2); ABSOLUTE NEUTROPHILS 3.3 thou/uL (1.6-8.1); BASOPHILS 1.2 %; EOSINOPHILS 4.7 %; HEMATOCRIT 39.2 % (42.0-52.0); HEMOGLOBIN 13.6 gm/dL (14.0-18.0); LYMPHOCYTES 24.4 %; MCH 33.4 pg (26.0-34.0); MCHC 34.6 g/dL (28.0-37.0); MCV 96.5 fL (80.0-100.0); MONOCYTES 10.8 %; MPV 6.4 fl. (7.2-11.1); NUCLEATED RBCS 0 /100WBC; PLATELET COUNT* 285 thou/uL (150-400); POLYS 58.9 %; RBC 4.06 mil/uL (4.50-6.00); RDW-CV 13.8 % (10.5-14.5); WBC 5.6 thou/uL (4.0-11.0)
[2021-07-17 10:05] LABS: CALCIUM 8.2 mg/dL (8.5-10.1); CREATININE 1.3 mg/dL (0.6-1.3); POTASSIUM 4.2 mmol/L (3.5-5.1)
[2021-07-17 10:09] LABS: ALBUMIN 3.9 g/dL (3.4-5.0); TOTAL BILIRUBIN 0.4 mg/dL (<0.1-1.0); TOTAL PROTEIN 7.6 g/dL (6.4-8.2)
[2021-07-17 10:12] LABS: URINE BILIRUBIN NEGATIVE (Negative); URINE BLOOD TRACE (Negative); URINE CLARITY CLEAR; URINE COLOR YELLOW; URINE GLUCOSE-RANDOM NEGATIVE (Negative); URINE KETONES NEGATIVE (Negative); URINE LEUKOCYTES-REFLEX 1+ (Negative); URINE PROTEIN NEGATIVE (Negative); URINE SPECIFIC GRAVITY <= 1.005 (1.005-1.030); URINE UROBILINOGEN 0.2 E.U./dl (0.2-1.0)
[2021-07-17 10:22] LABS: URINE NITRITE-REFLEX POSITIVE (Negative)
[2021-07-17 10:35] LABS: SQUAMOUS 0-3 Few /LPF (0-3); URINE WBC-REFLEX 0-5 Rare /HPF (0-5)
[2021-07-17 10:36] LABS: CASTS None Seen /LPF (None Seen); CRYSTALS None Seen /LPF (None Seen); MUCUS None Seen strn/LPF (None Seen); URINE RBC 0-2 Rare /HPF (0-2)
[2021-07-17] MEDS ORDERED: FLEXERIL PO (11:48)
[2021-07-17] MEDS ORDERED: BENTYL 10 MG CA10 M1 PO (11:48)
[2021-07-17] MEDS ORDERED: CEPHALEXIN500 MG PO (11:51)
[2021-07-17 12:07] VITALS: BP 105/65
== END 2021-07-17 12:08 | disposition home or self-care (01) ==
LOC: M.ERS 09:04
PROVIDERS: Emergency Medicine Emergency Medical Services
DX: N39.0 Urinary tract infection, site not specified (principal); R10.32 Left lower quadrant pain; Z93.6 Other artificial openings of urinary tract status

== ENCOUNTER 2021-07-23 11:32 | Emergency (ER) | payer MEDICAID ==
[~2021-07-23] VITALS: Ht 182.9 cm; Wt 94.3 kg
[~2021-07-23 11:32] MED LIST changes: +BENTYL 10 MG CA10 M1 PO; +CEPHALEXIN500 MG PO
[2021-07-23] MEDS ORDERED: PERCOCET PO ×2 (11:44→13:34)
[2021-07-23 11:47] VITALS: BP 146/72
== END 2021-07-23 11:48 | disposition home or self-care (01) ==
LOC: M.ERS 11:32
DX: G89.29 Other chronic pain (principal); R10.11 Right upper quadrant pain; E11.9 Type 2 diabetes mellitus without complications; F31.9 Bipolar disorder, unspecified; F41.9 Anxiety disorder, unspecified; I10 Essential (primary) hypertension; G40.909 Epilepsy, unspecified, not intractable, without status epilepticus; F17.210 Nicotine dependence, cigarettes, uncomplicated; Z98.890 Other specified postprocedural states; Z87.442 Personal history of urinary calculi; Z90.49 Acquired absence of other specified parts of digestive tract; Z85.51 Personal history of malignant neoplasm of bladder; Z79.891 Long term (current) use of opiate analgesic; Z79.899 Other long term (current) drug therapy; Z79.4 Long term (current) use of insulin; Z88.0 Allergy status to penicillin; Z88.5 Allergy status to narcotic agent; Z88.6 Allergy status to analgesic agent; Z88.8 Allergy status to other drugs, medicaments and biological substances

== ENCOUNTER 2021-08-06 09:17 | Emergency (ER) | payer MEDICAID ==
[~2021-08-06] VITALS: Ht 182.9 cm; Wt 94.3 kg
[2021-08-06 11:26] VITALS: BP 124/94
== END 2021-08-06 11:27 | disposition home or self-care (01) ==
LOC: M.ERS 09:17
DX: M25.552 Pain in left hip (principal); E11.9 Type 2 diabetes mellitus without complications; F32.9 Major depressive disorder, single episode, unspecified; F41.9 Anxiety disorder, unspecified; I10 Essential (primary) hypertension; F17.210 Nicotine dependence, cigarettes, uncomplicated; Z79.4 Long term (current) use of insulin; Z79.899 Other long term (current) drug therapy; Z88.0 Allergy status to penicillin; Z88.5 Allergy status to narcotic agent

== ENCOUNTER 2021-08-18 10:38 | Emergency (ER) | payer MEDICAID | END 2021-08-18 10:41 | disposition left against medical advice (07) | LOC: M.ERS 10:38 | DX: R10.9 Unspecified abdominal pain (principal); Z53.21 Procedure and treatment not carried out due to patient leaving prior to being seen by health care provider ==

== ENCOUNTER 2021-08-27 12:45 | Emergency (ER) | payer MEDICAID ==
[~2021-08-27] VITALS: Ht 182.9 cm; Wt 94.3 kg
[2021-08-27] MEDS ORDERED: PERCOCET PO (12:56)
[2021-08-27 13:02] VITALS: BP 134/76
== END 2021-08-27 13:03 | disposition home or self-care (01) ==
LOC: M.ERS 12:45
DX: M25.551 Pain in right hip (principal); F31.9 Bipolar disorder, unspecified; E11.9 Type 2 diabetes mellitus without complications; F41.9 Anxiety disorder, unspecified; I10 Essential (primary) hypertension; G40.909 Epilepsy, unspecified, not intractable, without status epilepticus; F17.210 Nicotine dependence, cigarettes, uncomplicated; Z98.890 Other specified postprocedural states; Z86.711 Personal history of pulmonary embolism; Z87.442 Personal history of urinary calculi; Z85.51 Personal history of malignant neoplasm of bladder; Z79.4 Long term (current) use of insulin; Z88.0 Allergy status to penicillin; Z88.8 Allergy status to other drugs, medicaments and biological substances; X50.9XXA Other and unspecified overexertion or strenuous movements or postures, initial encounter; Y93.89 Activity, other specified; Y92.89 Other specified places as the place of occurrence of the external cause; Y99.8 Other external cause status

== ENCOUNTER 2021-09-18 07:41 | Emergency (ER) | payer MEDICAID | END 2021-09-18 07:48 | disposition left against medical advice (07) | LOC: M.ERS 07:41 | DX: M25.562 Pain in left knee (principal); Z53.21 Procedure and treatment not carried out due to patient leaving prior to being seen by health care provider ==

== ENCOUNTER 2021-09-20 10:53 | Emergency (ER) | payer MEDICAID ==
[~2021-09-20] VITALS: Ht 182.9 cm; Wt 94.3 kg
[2021-09-20] MEDS ORDERED: ZANAFLEX4 MG PO (12:57)
[2021-09-20 13:32] VITALS: BP 114/62
== END 2021-09-20 13:35 | disposition home or self-care (01) ==
LOC: M.ERS 10:53
DX: S16.1XXA Strain of muscle, fascia and tendon at neck level, initial encounter (principal); S06.0X1A Concussion with loss of consciousness of 30 minutes or less, initial encounter; S70.01XA Contusion of right hip, initial encounter; S40.011A Contusion of right shoulder, initial encounter; M25.511 Pain in right shoulder; E11.9 Type 2 diabetes mellitus without complications; F32.9 Major depressive disorder, single episode, unspecified; F41.9 Anxiety disorder, unspecified; I10 Essential (primary) hypertension; F17.210 Nicotine dependence, cigarettes, uncomplicated; Z90.49 Acquired absence of other specified parts of digestive tract; Z79.4 Long term (current) use of insulin; Z79.899 Other long term (current) drug therapy; Z88.0 Allergy status to penicillin; Z88.5 Allergy status to narcotic agent; Z88.8 Allergy status to other drugs, medicaments and biological substances; W10.8XXA Fall (on) (from) other stairs and steps, initial encounter; Y93.89 Activity, other specified; Y92.89 Other specified places as the place of occurrence of the external cause; Y99.8 Other external cause status

== ENCOUNTER 2021-09-22 10:09 | Emergency (ER) | payer MEDICAID ==
[~2021-09-22] VITALS: Ht 177.8 cm; Wt 81.7 kg
[~2021-09-22 10:09] MED LIST changes: +ZANAFLEX4 MG PO
[2021-09-22] MEDS ORDERED: PERCOCET PO (10:20)
[2021-09-22 10:27] VITALS: BP 145/77
== END 2021-09-22 10:28 | disposition home or self-care (01) ==
LOC: M.ERS 10:09
DX: G89.29 Other chronic pain (principal); M25.512 Pain in left shoulder; F31.9 Bipolar disorder, unspecified; E11.9 Type 2 diabetes mellitus without complications; F41.9 Anxiety disorder, unspecified; I10 Essential (primary) hypertension; G40.909 Epilepsy, unspecified, not intractable, without status epilepticus; F17.210 Nicotine dependence, cigarettes, uncomplicated; Z87.442 Personal history of urinary calculi; Z85.51 Personal history of malignant neoplasm of bladder; Z98.890 Other specified postprocedural states; Z79.899 Other long term (current) drug therapy; Z79.4 Long term (current) use of insulin; Z88.0 Allergy status to penicillin; Z88.8 Allergy status to other drugs, medicaments and biological substances; Z88.6 Allergy status to analgesic agent

== ENCOUNTER 2021-10-09 10:33 | Emergency (ER) | payer MEDICAID ==
[~2021-10-09] VITALS: Ht 182.9 cm; Wt 94.3 kg
[2021-10-09] MEDS ORDERED: PERCOCET PO ×2 (10:46→11:49)
[2021-10-09 10:53] VITALS: BP 141/91
== END 2021-10-09 10:54 | disposition home or self-care (01) ==
LOC: M.ERS 10:33
DX: G89.29 Other chronic pain (principal); M79.605 Pain in left leg; F31.9 Bipolar disorder, unspecified; E11.9 Type 2 diabetes mellitus without complications; G40.909 Epilepsy, unspecified, not intractable, without status epilepticus; I10 Essential (primary) hypertension; B19.20 Unspecified viral hepatitis C without hepatic coma; F17.210 Nicotine dependence, cigarettes, uncomplicated; Z87.442 Personal history of urinary calculi; Z98.890 Other specified postprocedural states; Z90.49 Acquired absence of other specified parts of digestive tract; Z90.89 Acquired absence of other organs; Z79.4 Long term (current) use of insulin; Z79.899 Other long term (current) drug therapy; Z88.0 Allergy status to penicillin; Z88.8 Allergy status to other drugs, medicaments and biological substances; Z88.5 Allergy status to narcotic agent

== ENCOUNTER 2021-10-23 07:42 | Emergency (ER) | payer MEDICAID ==
[~2021-10-23] VITALS: Ht 182.9 cm; Wt 94.3 kg
[2021-10-23] MEDS ORDERED: PERCOCET PO (08:02)
[2021-10-23 08:13] VITALS: BP 141/87
== END 2021-10-23 08:14 | disposition home or self-care (01) ==
LOC: M.ERS 07:42
DX: G89.29 Other chronic pain (principal); M25.512 Pain in left shoulder; M25.561 Pain in right knee; F31.9 Bipolar disorder, unspecified; E11.9 Type 2 diabetes mellitus without complications; F41.9 Anxiety disorder, unspecified; I10 Essential (primary) hypertension; G40.909 Epilepsy, unspecified, not intractable, without status epilepticus; F17.210 Nicotine dependence, cigarettes, uncomplicated; Z90.89 Acquired absence of other organs; Z85.51 Personal history of malignant neoplasm of bladder; Z98.890 Other specified postprocedural states; Z86.711 Personal history of pulmonary embolism; Z79.899 Other long term (current) drug therapy; Z79.4 Long term (current) use of insulin; Z88.0 Allergy status to penicillin; Z87.442 Personal history of urinary calculi; Z88.8 Allergy status to other drugs, medicaments and biological substances; Z88.6 Allergy status to analgesic agent

== ENCOUNTER 2021-11-02 07:28 | Emergency (ER) | payer MEDICAID ==
[~2021-11-02] VITALS: Ht 182.9 cm; Wt 94.3 kg
[2021-11-02] MEDS ORDERED: FLEXERIL PO (09:24)
[2021-11-02 09:34] VITALS: BP 148/69
[2021-11-03] MEDS ORDERED: PERCOCET PO (17:08)
== END 2021-11-02 09:35 | disposition home or self-care (01) ==
LOC: M.ERS 07:28
DX: S46.912A Strain of unspecified muscle, fascia and tendon at shoulder and upper arm level, left arm, initial encounter (principal); S16.1XXA Strain of muscle, fascia and tendon at neck level, initial encounter; F31.9 Bipolar disorder, unspecified; E11.9 Type 2 diabetes mellitus without complications; F41.9 Anxiety disorder, unspecified; G40.909 Epilepsy, unspecified, not intractable, without status epilepticus; F17.210 Nicotine dependence, cigarettes, uncomplicated; Z98.890 Other specified postprocedural states; Z86.711 Personal history of pulmonary embolism; Z87.442 Personal history of urinary calculi; Z85.51 Personal history of malignant neoplasm of bladder; Z93.6 Other artificial openings of urinary tract status; Z79.899 Other long term (current) drug therapy; Z79.4 Long term (current) use of insulin; Z88.0 Allergy status to penicillin; Z88.8 Allergy status to other drugs, medicaments and biological substances; Z88.6 Allergy status to analgesic agent; W18.09XA Striking against other object with subsequent fall, initial encounter; Y92.89 Other specified places as the place of occurrence of the external cause; Y93.89 Activity, other specified; Y99.8 Other external cause status

== ENCOUNTER 2021-11-03 17:00 | Emergency (ER) | payer MEDICAID ==
[~2021-11-03] VITALS: Ht 182.9 cm; Wt 94.3 kg
[2021-11-03] MEDS ORDERED: PERCOCET PO (17:08)
[2021-11-03 17:16] VITALS: BP 122/82
== END 2021-11-03 17:17 | disposition home or self-care (01) ==
LOC: M.ERS 17:00
DX: G89.29 Other chronic pain (principal); M25.512 Pain in left shoulder; F31.9 Bipolar disorder, unspecified; E11.9 Type 2 diabetes mellitus without complications; F41.9 Anxiety disorder, unspecified; I10 Essential (primary) hypertension; G40.909 Epilepsy, unspecified, not intractable, without status epilepticus; F17.210 Nicotine dependence, cigarettes, uncomplicated; Z87.442 Personal history of urinary calculi; Z90.89 Acquired absence of other organs; Z85.51 Personal history of malignant neoplasm of bladder; Z98.890 Other specified postprocedural states; Z79.899 Other long term (current) drug therapy; Z79.4 Long term (current) use of insulin; Z88.0 Allergy status to penicillin; Z88.6 Allergy status to analgesic agent; Z88.8 Allergy status to other drugs, medicaments and biological substances

== ENCOUNTER 2021-11-22 10:34 | Emergency (ER) | payer MEDICAID ==
[~2021-11-22] VITALS: Ht 182.9 cm; Wt 94.3 kg
[2021-11-22 10:50] VITALS: BP 134/68
== END 2021-11-22 11:04 | disposition home or self-care (01) ==
LOC: M.ERS 10:34
DX: G89.29 Other chronic pain (principal); M25.551 Pain in right hip; E11.9 Type 2 diabetes mellitus without complications; F31.9 Bipolar disorder, unspecified; B19.20 Unspecified viral hepatitis C without hepatic coma; I10 Essential (primary) hypertension; G40.909 Epilepsy, unspecified, not intractable, without status epilepticus; F17.210 Nicotine dependence, cigarettes, uncomplicated; Z98.890 Other specified postprocedural states; Z87.442 Personal history of urinary calculi; Z85.51 Personal history of malignant neoplasm of bladder; Z79.4 Long term (current) use of insulin; Z79.899 Other long term (current) drug therapy; Z88.0 Allergy status to penicillin; Z88.6 Allergy status to analgesic agent; Z88.5 Allergy status to narcotic agent; Z88.8 Allergy status to other drugs, medicaments and biological substances

== ENCOUNTER 2021-11-29 09:22 | Emergency (ER) | payer MEDICAID ==
[~2021-11-29] VITALS: Ht 182.9 cm; Wt 90.7 kg
[2021-11-29] MEDS ORDERED: PERCOCET PO (09:41)
[2021-11-29 09:53] VITALS: BP 141/91
== END 2021-11-29 09:54 | disposition home or self-care (01) ==
LOC: M.ERS 09:22
DX: G89.29 Other chronic pain (principal); L89.329 Pressure ulcer of left buttock, unspecified stage; E11.9 Type 2 diabetes mellitus without complications; I10 Essential (primary) hypertension; F17.210 Nicotine dependence, cigarettes, uncomplicated; Z86.19 Personal history of other infectious and parasitic diseases; Z86.711 Personal history of pulmonary embolism; Z87.442 Personal history of urinary calculi; Z85.51 Personal history of malignant neoplasm of bladder; Z88.0 Allergy status to penicillin; Z88.6 Allergy status to analgesic agent; Z79.4 Long term (current) use of insulin